=== PATIENT | male | born 1955 | race African-American/Black ===

== ENCOUNTER 2016-07-11 12:06 | Day surgery (SDC) | payer MEDICARE, OTHER ==
[2016-07-11 12:29] LABS: ABSOLUTE BASOPHILS # (AUTO) 0.1 10^3/uL (0.0-0.2); ABSOLUTE EOSINOPHILS # (AUTO) 0.5 10^3/uL (0.0-0.6); ABSOLUTE LYMPHOCYTES (AUTO) 1.1 10^3/uL (0.5-4.7); ABSOLUTE MONOCYTES (AUTO) 0.8 10^3/uL (0.1-1.4); ABSOLUTE NEUT (AUTO) 3.7 10^3/uL (1.7-8.2); EOSINOPHILS % (AUTO) 7.6 % (0-6); HEMATOCRIT 33.3 % (37.9-51.0); HEMOGLOBIN 10.5 g/dL (13.5-17.0); HGB HCT DIFFERENCE -1.8; LYMPHOCYTES % (AUTO) 18.1 % (13-45); MEAN CORPUSCULAR HEMOGLOBIN 26.8 pg (27.0-33.4); MEAN CORPUSCULAR HGB CONC 31.5 g/dL (32.0-36.0); MEAN CORPUSCULAR VOLUME 85 fl (80-97); MONOCYTES % (AUTO) 13.3 % (3-13); RED BLOOD COUNT 3.93 10^6/uL (4.35-5.55); RED CELL DISTRIBUTION WIDTH 21.8 % (11.5-14.0); WHITE BLOOD COUNT 6.2 10^3/uL (4.0-10.5)
[2016-07-11 12:37] LABS: PROTHROMBIN TIME 13.9 SEC (11.4-15.4)
[2016-07-11 12:38] LABS: PARTIAL THROMBOPLASTIN TIME 33.6 SEC (23.5-35.8)
[2016-07-11 12:53] LABS: BLOOD UREA NITROGEN 77 mg/dL (7-20); CALCIUM 7.5 mg/dL (8.4-10.2); CARBON DIOXIDE 21 mmol/L (22-30); CHLORIDE 99 mmol/L (98-107); CREATININE RESULT 12.32 mg/dL (0.52-1.25); GLUCOSE 76 mg/dL (75-110); POTASSIUM 4.7 mmol/L (3.6-5.0); SODIUM 140.6 mmol/L (137-145)
[2016-07-11 12:56] LABS: ANION GAP 21 (5-19)
[2016-07-11] MEDS ORDERED: HEPARIN SOD (PORCINE) 5,000 UNIT/ML 1 ML SYRINGE ONE (13:02)
[2016-07-11] MEDS ORDERED: MIDAZOLAM 2 MG/2 ML INJ ONE (13:02)
[2016-07-11] MEDS ORDERED: FENTANYL CITRATE INJ/PF 100 MCG/2 ML AMPUL ONE (13:02)
[2016-07-11] MEDS ORDERED: LIDOCAINE 0.5% INJ-PF (5 MG/ML) 50 ML SDV ONE (13:15)
--- NOTE | 2016-07-11 14:53 | PDOC DISCHARGE SUMMARY ---
Discharge Summary (SDC) - Discharge Final Diagnosis: 1 malfunctioning arteriovenous fistula, right radiocephalic. #2 end-stage renal disease on hemodialysis. #3 hypertension. #4 hepatitis C. #5 diabetes mellitus type II. Date of Surgery: 07/11/16 Discharge Date: 07/11/16 Condition: Fair Treatment or Instructions: #1 activities within moderation encouraged. #2 follow up in my office by appointment in about 1 week. Call for appointment. #3 the wounds covered clean and dry until hemodialysis #4 hold off on school/work until evaluation in office. #5 may shower in 48 hours, keep operated area as dry as possible. #6 discharge from ambulatory when ASU criteria met. #7 medications per medication reconciliation sheet. #8 May have one Percocet up to every 2 hours when necessary for pain greater than 4 out of 10 while in the ASU Respiratory Treatments at Home: Deep Breathing/Coughing Discharge Activity: Activity As Tolerated Report the Following to Your Physician Immediately: Unusual Bleeding
[2016-07-11 15:23] VITALS: BP 150/80
--- NOTE | 2016-07-11 18:05 | EKG REPORT ---
SEVERITY:- OTHERWISE NORMAL ECG - SINUS RHYTHM BORDERLINE LEFT AXIS DEVIATION : Confirmed by: Jason Kan MD 11-Jul-2016 18:04:47
--- NOTE | 2016-07-11 19:00 | PDOC H&P ---
General Chief Complaint: This patient on hemodialysis through a right forearm cephalic to radial fistula , is referred across because of diminished flow rates. Copious to intervene and thus prolong usable fistula function. - Diagnosis (2) End stage renal disease on dialysis Is this a Current Diagnosis?: Yes (3) Chronic systolic (congestive) heart failure Is this a Current Diagnosis?: Yes (5) Hepatitis C Is this a Current Diagnosis?: Yes - Current Medications/Allergies Home Medications: Clonidine HCl [Catapres] 0.1 mg PO BID 01/25/15 Allopurinol [Zyloprim 100 mg Tablet] 100 mg PO DAILY 03/05/15 Metronidazole [Flagyl 500 mg Tablet] 500 mg PO Q8H 04/04/15 Colchicine [Colchicine 0.6 mg Tablet] 1 tab PO BID PRN 08/07/15 Aspirin [Aspirin 81 mg Chewable Tablet] 81 mg PO DAILY 02/22/16 Calcium Acetate 667 mg PO ASDIR PRN 02/22/16 Allergies/Adverse Reactions: No Known Allergies Allergy (Unverified 06/07/15 10:31) Past Medical History Cardiac Medical History: Reports: Congestive Heart Failure, Coronary Artery Disease - hyperlipidemia, Hypertension Denies: Myocardial Infarction Pulmonary Medical History: Denies: Asthma, Bronchitis, Chronic Obstructive Pulmonary Disease (COPD), Pneumonia Neurological Medical History: Denies: Seizures Endocrine Medical History: Reports: Diabetes Mellitus Type 2 - diet controlled Renal/ Medical History: Reports: End Stage Renal Disease Musculoskeltal Medical History: Reports: Arthritis - left knee Psychiatric Medical History: Denies: Depression Hematology: Denies: Anemia Past Surgical History Past Surgical History: Reports: Vascular Surgery - Laparoscopic peritoneal dialysis catheter insertion. Right forearm radio Family History Family History: Reviewed & Not Pertinent, CAD, DM Parental Family History Reviewed: No Children Family History Reviewed: No Sibling(s) Family History Reviewed.: No Social History Smoking Status: Former Smoker Frequency of Alcohol Use: None Hx Recreational Drug Use: No Drugs: None Hx Prescription Drug Abuse: No Physical Exam Vital Signs: Temp Pulse Resp BP Pulse Ox 97.7 F 51 L 16 150/80 H 99 07/11/16 14:40 07/11/16 15:10 07/11/16 15:10 07/11/16 15:10 07/11/16 15:10 Intake & Output 02/05/17 02/06/17 02/07/17 06:59 06:59 06:59 Weight 83.915 kg Additional comments: A well-developed well-nourished -Faroese male. Muscular body habitus. No acute distress. Eyes membranes is pink and moist, sclerae anicteric. Respiratory no shortness of breath. Breath sounds are normal and equal bilaterally. Cardiac: Heart sounds 1 and 2 heard, no murmurs. Upper extremities show normal range of movement and pulsatile to the radials. Normal capillary refill. A cephalic to radial artery fistula is appreciated. In the right upper extremity. Somewhat soft, suggesting inflow stenosis. Psychiatric the patient is alert, oriented, judgment, memory, insight normal Impression/Plan Impression: In this patient who is pendant on the function of his AV fistula for adequate hemodialysis, intervention seems well indicated. The plan is to do an angiogram and possible angioplasty. The risks, benefits, expected outcome, and alternatives are familiar to the patient.
--- NOTE | 2016-07-11 19:05 | Operative Report ---
Operative Report DATE OF SURGERY: 07/11/16 PREOPERATIVE DIAGNOSIS: #1 malfunctioning AV fistula, right radiocephalic. #2 end-stage renal disease on hemodialysis. #3 history of hepatitis C. #4 history of coronary artery disease. #5 hypertension. POSTOPERATIVE DIAGNOSIS: #1 malfunctioning AV fistula, right radiocephalic. #2 end-stage renal disease on hemodialysis. #3 history of hepatitis C. #4 history of coronary artery disease. #5 hypertension. OPERATION: #1 needle access into fistula. #2 angioplasty. #3 angiogram and interpretation. SURGEON: CHANDU VERMA JUNIOR ESTIMATOR: none ANESTHESIA: Moderate Sedation TISSUE REMOVED OR ALTERED: Not applicable. COMPLICATIONS: None ESTIMATED BLOOD LOSS: 5 mL. INTRAOPERATIVE FINDINGS: Of a well-founded right forearm cephalic to radial fistula. Functional with a nice bruit. Nevertheless the fistula is relatively soft, in comparison to the firm initially 3 cm. This correlates with the angiographic findings of an area of stenosis 70% of the adjacent lumen and situated at about 3-5 cm. The area exactly of 5 cm was particularly resistant. Inflating to the maximum burst pressure of the balloon which is 22 lakia there was still some residual stenosis. Estimated to be about 15%. Nevertheless the quality of the fistula pulsation markedly improved after the procedure. It may be necessary in the future to use a higher pressure balloon and possibly even going up to 6 rather than 5 mm balloon. PROCEDURE: PROCEDURE: After verifying the procedure and having obtained informed consent, the patient's right arm and forearm were prepared with Chlorhexidine and draped out with sterile linen. Local anesthesia infiltrated. Percutaneous access into the fistula ,[retrograde], obtained about [15 cm] from the arteriovenous anastomosis using a micro puncture needle followed by micro puncture wire and then a micro puncture catheter. This was done on ultrasound guidance using real-time access into the vein. Ultrasound was also used to size the vein. Angiogram demonstrated the aforementioned findings. Angioplasty was elected. A 0.035 [place] wire was inserted, and over this, a 6 [place] short introducer was placed, this was followed by a 5 mm angioplasty balloon . Angioplasty was now done at the distal over the anastomotic and perianastomotic segment. This was done very carefully and up to 10 lakia sustained for 2 minutes. Angiogram demonstrated successful outcome. The balloon was moved distal to the anastomosis and inflation done in careful increments up to 22 lakia over the culprit lesion. Completion angiogram demonstrated [and acceptable result]. The instrumentation was now withdrawn over pressure for about 10 minutes. Dressings applied, procedure concluded. DICTATING PHYSICIAN: CHANDU BLACKBURN M.D. cc: CHANDU BLACKBURN M.D. ([id number]) >>
== END 2016-07-11 15:25 | disposition home or self-care (01) ==
LOC: CCL 12:06
PROVIDERS: ATTEND Surgery
PROC: 057D3DZ Dilation of Right Cephalic Vein with Intraluminal Device, Percutaneous Approach (ICD-10-PCS; principal; 2016-07-11)
DX: T82.858A Stenosis of other vascular prosthetic devices, implants and grafts, initial encounter (principal); Y83.2 Surgical operation with anastomosis, bypass or graft as the cause of abnormal reaction of the patient, or of later complication, without mention of misadventure at the time of the procedure; E11.22 Type 2 diabetes mellitus with diabetic chronic kidney disease; I12.0 Hypertensive chronic kidney disease with stage 5 chronic kidney disease or end stage renal disease; N18.6 End stage renal disease; B19.20 Unspecified viral hepatitis C without hepatic coma; I50.22 Chronic systolic (congestive) heart failure; I25.10 Atherosclerotic heart disease of native coronary artery without angina pectoris; E78.5 Hyperlipidemia, unspecified; M17.12 Unilateral primary osteoarthritis, left knee; Z79.01 Long term (current) use of anticoagulants; Z79.899 Other long term (current) drug therapy; Z79.82 Long term (current) use of aspirin
CPT/HCPCS: 36415; 85025; 85610; 85730; 80048; 36902; 71010; 93005; 93010; C1725; C1887; Q9967; C1769; J2250; J1644 ×2; J3010; J3490

== ENCOUNTER 2016-09-13 06:57 | Day surgery (SDC) | payer MEDICARE, OTHER ==
[~2016-09-13 06:57] MED LIST: DIAZEPAM 5 MG TABLET PO PRN; OXYCODONE-ACETAMINOPHEN 5-325 MG TABLET PO PRN
[2016-09-13 07:26] LABS: ABSOLUTE BASOPHILS # (AUTO) 0.1 10^3/uL (0.0-0.2); ABSOLUTE EOSINOPHILS # (AUTO) 0.7 10^3/uL (0.0-0.6); ABSOLUTE LYMPHOCYTES (AUTO) 1.1 10^3/uL (0.5-4.7); ABSOLUTE MONOCYTES (AUTO) 0.7 10^3/uL (0.1-1.4); ABSOLUTE NEUT (AUTO) 4.1 10^3/uL (1.7-8.2); EOSINOPHILS % (AUTO) 10.7 % (0-6); HEMATOCRIT 26.5 % (37.9-51.0); HEMOGLOBIN 8.3 g/dL (13.5-17.0); HGB HCT DIFFERENCE -1.6; LYMPHOCYTES % (AUTO) 16.7 % (13-45); MEAN CORPUSCULAR HEMOGLOBIN 25.4 pg (27.0-33.4); MEAN CORPUSCULAR HGB CONC 31.4 g/dL (32.0-36.0); MEAN CORPUSCULAR VOLUME 81 fl (80-97); MONOCYTES % (AUTO) 10.4 % (3-13); RED BLOOD COUNT 3.27 10^6/uL (4.35-5.55); RED CELL DISTRIBUTION WIDTH 23.5 % (11.5-14.0); SEGMENTED NEUTROPHILS % (AUTO) 61.2 % (42-78); WHITE BLOOD COUNT 6.7 10^3/uL (4.0-10.5)
[2016-09-13 07:41] LABS: ANION GAP 17 (5-19); BLOOD UREA NITROGEN 55 mg/dL (7-20); CALCIUM 8.6 mg/dL (8.4-10.2); CARBON DIOXIDE 25 mmol/L (22-30); CHLORIDE 105 mmol/L (98-107); GLUCOSE 85 mg/dL (75-110); SODIUM 146.8 mmol/L (137-145)
[2016-09-13] MEDS ORDERED: MIDAZOLAM 2 MG/2 ML INJ ONE (08:13)
[2016-09-13] MEDS ORDERED: HEPARIN SOD (PORCINE) 5,000 UNIT/ML 1 ML SYRINGE ONE (08:14)
[2016-09-13] MEDS ORDERED: FENTANYL CITRATE INJ/PF 100 MCG/2 ML AMPUL ONE (08:14)
[2016-09-13] MEDS ORDERED: LIDOCAINE 0.5% INJ-PF (5 MG/ML) 50 ML SDV ONE (08:16)
[2016-09-13 08:32] LABS: POTASSIUM 6.1 mmol/L (3.6-5.0)
[2016-09-13] MEDS ORDERED: SODIUM POLYSTYRENE SULFONATE 15 GM/60 ML ONE (08:38)
[2016-09-13] MEDS ORDERED: SODIUM POLYSTYRENE SULFONATE 15 GM/60 ML PO ONE (09:15)
--- NOTE | 2016-09-13 10:35 | PDOC DISCHARGE SUMMARY ---
Discharge Summary (SDC) - Discharge Final Diagnosis: #1 malfunctioning arteriovenous fistula right radiocephalic. #2 hemodialysis with end-stage renal disease. #3 hepatitis C. #4 diabetes mellitus type II. #5 hypertension. Date of Surgery: 09/13/16 Discharge Date: 09/13/16 Condition: Good Treatment or Instructions: #1 activities within moderation encouraged. #2 follow up in my office by appointment in about 1 month. Call for appointment. #3 the wounds covered clean and dry until dialysis. #4 hold off on school/work until evaluation in office. #5 may shower in 48 hours, keep operated area as dry as possible. #6 discharge from ambulatory when ASU criteria met. #7 medications per medication reconciliation sheet. Discharge Diet: Other (Comments) - Renal. Respiratory Treatments at Home: Deep Breathing/Coughing Discharge Activity: Activity As Tolerated Report the Following to Your Physician Immediately: Unusual Bleeding
--- NOTE | 2016-09-13 10:43 | Operative Report ---
Operative Report DATE OF SURGERY: 09/13/16 PREOPERATIVE DIAGNOSIS: #1 malfunctioning arteriovenous fistula right radiocephalic. #2 hemodialysis with end-stage renal disease. #3 hepatitis C. #4 diabetes mellitus type II. #5 hypertension. POSTOPERATIVE DIAGNOSIS: #1 malfunctioning arteriovenous fistula right radiocephalic. #2 hemodialysis with end-stage renal disease. #3 hepatitis C. #4 diabetes mellitus type II. #5 hypertension. OPERATION: #1 needle introduction into arteriovenous fistula. #2 angioplasty in arteriovenous fistula. #3 angiogram and interpretation. SURGEON: CHANDU VERMA SUMMER BABYSITTER: none ANESTHESIA: Moderate Sedation TISSUE REMOVED OR ALTERED: Not applicable. COMPLICATIONS: None. ESTIMATED BLOOD LOSS: 5 mL. INTRAOPERATIVE FINDINGS: Of a well-founded right forearm radiocephalic fistula. Relatively soft initially, consistent with inflow stenosis. Much improved after angioplasty with a nice appropriate firmness in the fistula. The culprit area was a 1 cm area of stenosis about 4 cm away from the anastomosis. The anastomosis is free of stenosis. The stenosis is 80% of the adjacent lumen. It was improved with a residual 5-10 stenosis except for a very short area of tight stenosis which was improved but not eliminated. Even with pressures up to 32 lakia. This area may need to be addressed with high pressure balloons or cutting balloon needed in the future. PROCEDURE: PROCEDURE: After verifying the procedure and having obtained informed consent, the patient's right arm and forearm were prepared with Chlorhexidine and draped out with sterile linen. Local anesthesia infiltrated. Percutaneous access into the fistula ,[retrograde], obtained about [20 cm] from the arteriovenous anastomosis using a micro puncture needle followed by micro puncture wire and then a micro puncture catheter. Angiogram demonstrated the aforementioned findings. Angioplasty was elected. A 0.035 [place] wire was inserted, and over this, a 6 Albanian short introducer was placed a [place] catheter was now placed over the Glidewire. The Glidewire was manipulated into the radial artery , there was a tendency to go into the distal branch of the cephalic vein. The copy catheter was used to obtain a angiogram starting in the radial artery with the findings as above.m This was followed by a [5] angioplasty balloon . Angioplasty was now done at the perianastomotic segment. This was done very carefully and in the up to 18 lakia sustained for 2 minutes. The catheter now inflated up to 22 lakia. For 1 minute. Again thick completion angiogram was suboptimal. Angiogram demonstrated equivocal outcome. The balloon was now swapped over the wire for a 6 mm angioplasty balloon. Angioplasty was done at the culprit area. Inflating up to 32 atmospheres for a minute at a time.]. Completion angiogram demonstrated vast improvement, and acceptable result in addition the fistula generated higher pressures to palpation and before but within acceptable limits.. The instrumentation was now withdrawn over a hand- held pressure for 10 minutes Dressings applied, procedure concluded. Exposure time: 1.4 minutes Radiation: 19 lexa per centimeter squared Contrast: 25 mL of Isovue-M 300 low osmolality. DICTATING PHYSICIAN: CHANDU BLACKBURN M.D. cc: CHANDU BLACKBURN M.D. ([id number]) >>
[2016-09-13 12:03] VITALS: BP 151/80
== END 2016-09-13 11:40 | disposition home or self-care (01) ==
LOC: CCL 06:57
PROVIDERS: ATTEND Surgery
PROC: 057D3DZ Dilation of Right Cephalic Vein with Intraluminal Device, Percutaneous Approach (ICD-10-PCS; principal; 2016-09-13)
DX: T82.858A Stenosis of other vascular prosthetic devices, implants and grafts, initial encounter (principal); Y83.2 Surgical operation with anastomosis, bypass or graft as the cause of abnormal reaction of the patient, or of later complication, without mention of misadventure at the time of the procedure; I12.0 Hypertensive chronic kidney disease with stage 5 chronic kidney disease or end stage renal disease; E11.22 Type 2 diabetes mellitus with diabetic chronic kidney disease; Z99.2 Dependence on renal dialysis; B19.20 Unspecified viral hepatitis C without hepatic coma
CPT/HCPCS: 36415; 85025; 80048; 36902; C1725 ×2; C1752; C1887; Q9967; C1769; J2250; J1644 ×2; A9270 ×2; J3010; J3490

== ENCOUNTER 2016-12-05 07:02 | Day surgery (SDC) | payer MEDICARE, OTHER ==
[2016-12-05] MEDS ORDERED: HEPARIN SOD (PORCINE) 1,000 UNIT/ML 1 ML VIAL ONE (07:21)
[2016-12-05] MEDS ORDERED: LIDOCAINE 0.5% INJ-PF (5 MG/ML) 50 ML SDV ONE ×2 (07:22)
[2016-12-05] MEDS ORDERED: HEPARIN SOD (PORCINE) 1,000 UNIT/ML 10 ML VIAL ONE (08:17)
[2016-12-05 08:37] LABS: HEMATOCRIT 36.1 % (37.9-51.0); HEMOGLOBIN 10.9 g/dL (13.5-17.0); HGB HCT DIFFERENCE -3.4; MEAN CORPUSCULAR HEMOGLOBIN 25.1 pg (27.0-33.4); MEAN CORPUSCULAR HGB CONC 30.3 g/dL (32.0-36.0); MEAN CORPUSCULAR VOLUME 83 fl (80-97); RED BLOOD COUNT 4.36 10^6/uL (4.35-5.55); RED CELL DISTRIBUTION WIDTH 23.7 % (11.5-14.0); WHITE BLOOD COUNT 5.2 10^3/uL (4.0-10.5)
[2016-12-05 08:55] LABS: ANION GAP 19 (5-19); BLOOD UREA NITROGEN 59 mg/dL (7-20); CALCIUM 7.2 mg/dL (8.4-10.2); CARBON DIOXIDE 24 mmol/L (22-30); CHLORIDE 100 mmol/L (98-107); CREATININE RESULT 13.19 mg/dL (0.52-1.25); GLUCOSE 80 mg/dL (75-110); POTASSIUM 5.2 mmol/L (3.6-5.0); SODIUM 143.4 mmol/L (137-145)
[2016-12-05] MEDS ORDERED: MIDAZOLAM 2 MG/2 ML INJ ONE (09:53)
[2016-12-05] MEDS ORDERED: MORPHINE SULFATE 10 MG/ML INJ ONE (09:53)
[2016-12-05] MEDS ORDERED: PROPOFOL INJ 200 MG/20 ML VIAL IV ONE (09:53)
--- NOTE | 2016-12-05 09:58 | PDOC H&P ---
General Chief Complaint: Decreased flows have been noted on hemodialysis recently. He is referred across for angiogram - Current Medications/Allergies Home Medications: Clonidine HCl [Catapres] 0.1 mg PO BID 01/25/15 Allopurinol [Zyloprim 100 mg Tablet] 100 mg PO DAILY 03/05/15 Metronidazole [Flagyl 500 mg Tablet] 500 mg PO Q8H 04/04/15 Colchicine [Colchicine 0.6 mg Tablet] 1 tab PO BID PRN 08/07/15 Aspirin [Aspirin 81 mg Chewable Tablet] 81 mg PO DAILY 02/22/16 Calcium Acetate 667 mg PO ASDIR PRN 02/22/16 Allergies/Adverse Reactions: No Known Allergies Allergy (Unverified 12/05/16 08:48) Past Medical History Cardiac Medical History: Reports: Congestive Heart Failure, Coronary Artery Disease - hyperlipidemia, Hypertension Denies: Myocardial Infarction Pulmonary Medical History: Denies: Asthma, Bronchitis, Chronic Obstructive Pulmonary Disease (COPD), Pneumonia Neurological Medical History: Denies: Seizures Endocrine Medical History: Reports: Diabetes Mellitus Type 2 - diet controlled Renal/ Medical History: Reports: End Stage Renal Disease Musculoskeltal Medical History: Reports: Arthritis - left knee Psychiatric Medical History: Denies: Depression Hematology: Denies: Anemia Past Surgical History Past Surgical History: Reports: Vascular Surgery - Laparoscopic peritoneal dialysis catheter insertion. Right forearm radio Family History Family History: Reviewed & Not Pertinent, CAD, DM Parental Family History Reviewed: No Children Family History Reviewed: No Sibling(s) Family History Reviewed.: No Social History Smoking Status: Former Smoker Frequency of Alcohol Use: None Hx Recreational Drug Use: No Drugs: None Hx Prescription Drug Abuse: No Physical Exam Vital Signs: Temp Pulse Resp BP Pulse Ox 97.6 F 56 L 14 127/74 H 100 12/05/16 08:21 12/05/16 08:21 12/05/16 08:21 12/05/16 08:21 12/05/16 08:21 Intake & Output 12/04/16 12/05/16 12/06/16 06:59 06:59 06:59 Intake Total 1000 Balance 1000 Weight 91.63 kg Additional comments: Constitutional: Well-developed well-nourished -[place]ian gentleman. No apparent acute distress. Eyes: Mucous membranes pink and moist, pupils equal and reactive to light. Conjunctiva normal. Cornea senilis noted. ENT: Hearing grossly normal. External pinna normal to inspection. Teeth intact. Tongue normal to inspection. There are: Heart sounds 1 and normal normal, no murmurs Respiratory breath sounds are present bilaterally, normal. Normal respiratory effort. Skin: Normal to inspection. No ulcers, normal turgor. Psychiatric: Judgment, memory, insight seem normal. Mood is pleasant and appropriate. Extremities: Upper extremities show normal range of movement. Pulses present noted to the radial arteries. Capillary refill normal. No cyanosis noted. No muscle wasting noted. Forearm radiocephalic fistula in place. Normal bruit normal palpation. Impression/Plan Impression: #1 malfunctioning AV fistula right arm, radiocephalic. 2. End-stage renal disease on hemodialysis. 3. Hepatitis C. 4. Hypertension. Plan: The plan is for angioplasty [place] and possible angioplasty. The procedure, its risks, benefits, expected outcome and alternatives are familiar to the patient. He wishes to proceed.
[2016-12-05] MEDS ORDERED: MEPERIDINE HCL/PF INJ 25 MG/1 ML DISP.SYRIN IV PRN (10:41)
[2016-12-05] MEDS ORDERED: DIPHENHYDRAMINE HCL 50 MG/ML VIAL IV PRN (10:41)
[2016-12-05] MEDS ORDERED: MORPHINE SULFATE 10 MG/ML INJ IV PRN (10:41)
[2016-12-05] MEDS ORDERED: FENTANYL CITRATE INJ/PF 100 MCG/2 ML AMPUL IV PRN ×3 (10:41)
[2016-12-05] MEDS ORDERED: PROMETHAZINE HCL INJ 25 MG/1 ML VIAL IV PRN ×2 (10:41)
[2016-12-05] MEDS ORDERED: OXYCODONE-ACETAMINOPHEN 5-325 MG TABLET PO PRN ×2 (10:41)
--- NOTE | 2016-12-05 11:29 | PDOC DISCHARGE SUMMARY ---
Discharge Summary (SDC) - Discharge Final Diagnosis: #1 malfunctioning arteriovenous fistula, right radiocephalic. 2. End-stage renal disease on hemodialysis. 3. Diabetes mellitus type 2. 4. Hepatitis C. 5. Hypertension. Date of Surgery: 12/05/16 Discharge Date: 12/05/16 Condition: Good Treatment or Instructions: Discharge home [after recovery per ASU criteria]. Diet , [renal],as tolerated, when fully awake advance as tolerated. Activities within moderation encouraged. Follow up in my office by appointment in about [1 week]. Call for appointment. Leave wounds [covered], hemodialysis]. Hold of on school/work [until evaluation in office]. May shower [in 48 hrs], [try to keep operated area as dry as possible]. Resume medications per medication reconciliation..
--- NOTE | 2016-12-05 12:41 | EKG REPORT ---
SEVERITY:- ABNORMAL ECG - SINUS RHYTHM BORDERLINE LEFT AXIS DEVIATION BORDERLINE PROLONGED QT INTERVAL CONSIDER OLD ANTEROSEPTAL MS : Confirmed by: Jason Kan MD 05-Dec-2016 12:40:34
[2016-12-05] MEDS ORDERED: GLYCOPYRROLATE INJ 0.4 MG/2 ML VIAL ONE (13:30)
[2016-12-05] MEDS ORDERED: ONDANSETRON HCL INJ/PF 4 MG/2 ML SDV ONE (13:30)
[2016-12-05] MEDS ORDERED: LIDOCAINE 2% INJ-PF (20 MG/ML) 10 ML AMPUL ONE (13:30)
--- NOTE | 2016-12-05 14:45 | RADIOLOGY REPORT (SQ) ---
EXAM DESCRIPTION: NO CHG FLUORO; FOREARM RIGHT COMPLETED DATE/TIME: 12/05/2016 2:36 pm REASON FOR STUDY: T82.858A T82.858A STENOSIS OF OTHER VASCULAR PROSTH DEV/GRFT, INIT COMPARISON: None. FLUOROSCOPY TIME: 5.6 minutes 22 images saved to PACS. TECHNIQUE: Intra-operative images acquired during surgical procedure to evaluate progress. NUMBER OF IMAGES: 22 LIMITATIONS: None. FINDINGS: Balloon angioplasty intervention of upper extremity dialysis graft. IMPRESSION: IMAGE(S) OBTAINED DURING PROCEDURE. COMMENT: Quality ID [id number]: Final reports for procedures using fluoroscopy that document radiation exp osure indices, or exposure time and number of fluorographic images (if radiation exposure indices are not available) Please consult full operative report of the attending physician for description of the procedure. TECHNICAL DOCUMENTATION: JOB ID: [id number] [employer]- All Rights Reserved
--- NOTE | 2016-12-05 14:45 | RADIOLOGY REPORT (SQ) ---
EXAM DESCRIPTION: NO CHG FLUORO; FOREARM RIGHT COMPLETED DATE/TIME: 12/05/2016 2:36 pm REASON FOR STUDY: T82.858A T82.858A STENOSIS OF OTHER VASCULAR PROSTH DEV/GRFT, INIT COMPARISON: None. FLUOROSCOPY TIME: 5.6 minutes 22 images saved to PACS. TECHNIQUE: Intra-operative images acquired during surgical procedure to evaluate progress. NUMBER OF IMAGES: 22 LIMITATIONS: None. FINDINGS: Balloon angioplasty intervention of upper extremity dialysis graft. IMPRESSION: IMAGE(S) OBTAINED DURING PROCEDURE. COMMENT: Quality ID [id number]: Final reports for procedures using fluoroscopy that document radiation exp osure indices, or exposure time and number of fluorographic images (if radiation exposure indices are not available) Please consult full operative report of the attending physician for description of the procedure. TECHNICAL DOCUMENTATION: JOB ID: [id number] [employer]- All Rights Reserved
[2016-12-05 15:42] VITALS: BP 147/86
--- NOTE | 2016-12-14 13:18 | Operative Report ---
Operative Report DATE OF SURGERY: 12/05/16 PREOPERATIVE DIAGNOSIS: #1 malfunctioning arteriovenous fistula, right radiocephalic. 2. End-stage renal disease on hemodialysis. 3. Diabetes mellitus type 2. 4. Hepatitis C. 5. Hypertension. POSTOPERATIVE DIAGNOSIS: #1 malfunctioning arteriovenous fistula, right radiocephalic. 2. End-stage renal disease on hemodialysis. 3. Diabetes mellitus type 2. 4. Hepatitis C. 5. Hypertension. OPERATION: 1 needle access into AV fistula. 2. Angioplasty. 3. Angiogram and interpretation SURGEON: CHANDU BLACKBURN 1ST GLOVE CUFFER: None ANESTHESIA: Moderate Sedation TISSUE REMOVED OR ALTERED: Not applicable COMPLICATIONS: None ESTIMATED BLOOD LOSS: 2 mL. INTRAOPERATIVE FINDINGS: Over area of tight stenosis about 80% of the adjacent lumen noted about 6 cm away from the anastomosis. This area was very difficult to dilate. A moderate amount of success was achieved with a residual about 10% stenosis. The highest possible pressures were utilized, 30 lakia. Dressing was lesion in the future might need a cutting balloon or a higher pressure insufflator. PROCEDURE: PROCEDURE: After verifying the procedure and having obtained informed consent, the patient's right arm and forearm were prepared with Chlorhexidine and draped out with sterile linen. Local anesthesia infiltrated. Percutaneous access into the fistula ,[retrograde], obtained about [20 cm] from the arteriovenous anastomosis using a micro puncture needle followed by micro puncture wire and then a micro puncture catheter. This was done on ultrasound guidance using real-time access into the vein. Ultrasound was also used to size the vein. Angiogram demonstrated the aforementioned findings. Angioplasty was elected. A 0.035 [place] wire was inserted, and over this, a 6 Mauritanian short introducer was placed, this was followed by a [6 mm ] angioplasty balloon . Angioplasty was now done at the perianastomotic segment. This was done very carefully and in increments up to 30 lakia sustained for 2 minutes. Angiogram demonstrated improved outcome. Completion angiogram demonstrated [satisfactory result]. The instrumentation was now withdrawn over hand-held pressure for 10 minutes. Dressings applied, procedure concluded. DICTATING PHYSICIAN: CHANDU BLACKBURN M.D. cc: CHANDU BLACKBURN M.D. ([id number]) >>
== END 2016-12-05 12:55 | disposition home or self-care (01) ==
LOC: OROUT 07:02
PROVIDERS: ATTEND Surgery
PROC: 057D3DZ Dilation of Right Cephalic Vein with Intraluminal Device, Percutaneous Approach (ICD-10-PCS; principal; 2016-12-05 10:00)
DX: T82.858A Stenosis of other vascular prosthetic devices, implants and grafts, initial encounter (principal); Y83.2 Surgical operation with anastomosis, bypass or graft as the cause of abnormal reaction of the patient, or of later complication, without mention of misadventure at the time of the procedure; I13.2 Hypertensive heart and chronic kidney disease with heart failure and with stage 5 chronic kidney disease, or end stage renal disease; I50.9 Heart failure, unspecified; N18.6 End stage renal disease; E11.22 Type 2 diabetes mellitus with diabetic chronic kidney disease; Z99.2 Dependence on renal dialysis; B19.20 Unspecified viral hepatitis C without hepatic coma; I25.10 Atherosclerotic heart disease of native coronary artery without angina pectoris; E78.5 Hyperlipidemia, unspecified; Z79.899 Other long term (current) drug therapy; Z79.82 Long term (current) use of aspirin; Z87.891 Personal history of nicotine dependence
CPT/HCPCS: 36902; 36415; 85027; 80048; 73090; 93005; 93010; C1725; C1752; C1887; Q9967; C1769; J2250; J1644 ×2; J3490 ×2; J2270; J2405; J2704; 01844

== ENCOUNTER → 2017-01-04 | Outpatient (CLI) | payer MEDICARE, OTHER ==
--- NOTE | 2017-01-04 11:22 | RADIOLOGY REPORT (SQ) ---
EXAM DESCRIPTION: U/S ABDOMEN LIMITED W/O DOP COMPLETED DATE/TIME: 01/04/2017 11:09 am REASON FOR STUDY: LT FLANK PAIN R10.9 UNSPECIFIED ABDOMINAL PAIN TECHNIQUE: Dynamic and static grayscale images acquired of the left kidney and spleen and recorded o n PACS. Additional selected color Doppler and spectral images recorded. LIMITATIONS: None. FINDINGS: LEFT KIDNEY: Kidney noted to be small in size with increased echogenicity suggestive of m edical renal disease. No focal lesions identified. No hydronephrosis. No calcifications. OTHER FINDINGS: Spleen normal in size. No focal lesions. IMPRESSION: Atrophic left kidney with increased echogenicity 6 suggestive of medical renal disease. No focal lesions identified. No hydronephrosis. No nephrolithiasis. Spleen is unremarkable. TECHNICAL DOCUMENTATION: JOB ID: [id number] [employer]- All Rights Reserved COMPARISON: None. 04/04/2015
== END ==
LOC: RAD 10:51
PROVIDERS: ATTEND Physician Assistant Medical
DX: R10.9 Unspecified abdominal pain (principal)
CPT/HCPCS: 76705

== ENCOUNTER 2017-06-28 11:00 | Outpatient (CLI) | payer MEDICARE, OTHER ==
[~2017-06-28 11:00] MED LIST changes: +ACETAMINOPHEN 325 MG TABLET PO PRN; -DIAZEPAM 5 MG TABLET PO PRN; +DIPHENHYDRAMINE HCL 25 MG CAPSULE PO PRN; +FUROSEMIDE INJ/PF 20 MG/2 ML SDV IV PRN; -OXYCODONE-ACETAMINOPHEN 5-325 MG TABLET PO PRN
[2017-06-28 11:36] LABS: HEMATOCRIT 16.6 % (37.9-51.0); MEAN CORPUSCULAR HEMOGLOBIN 24.3 pg (27.0-33.4); MEAN CORPUSCULAR HGB CONC 31.7 g/dL (32.0-36.0); MEAN CORPUSCULAR VOLUME 77 fl (80-97); PLATELET COUNT 366 10^3/uL (150-450); RED BLOOD COUNT 2.17 10^6/uL (4.35-5.55); RED CELL DISTRIBUTION WIDTH 21.4 % (11.5-14.0); WHITE BLOOD COUNT 6.2 10^3/uL (4.0-10.5)
[2017-06-28 11:39] LABS: HEMOGLOBIN 5.3 g/dL (13.5-17.0)
[2017-06-28] MEDS ORDERED: NORMAL SALINE 250 ML IV PRN (11:50)
[2017-06-28] MEDS ORDERED: ACETAMINOPHEN 325 MG TABLET ONE (14:17)
[2017-06-28] MEDS ORDERED: DIPHENHYDRAMINE HCL 25 MG CAPSULE PO ONE (18:30)
[2017-06-28] MEDS ORDERED: ACETAMINOPHEN 325 MG TABLET PO ONE (18:30)
[2017-06-29 00:51] VITALS: BP 113/64
== END 2017-06-29 00:45 | disposition home or self-care (01) ==
LOC: II 11:00 → 2S 11:06 → II 06-29 00:45
PROVIDERS: ATTEND Internal Medicine Nephrology
PROC: 30233N1 Transfusion of Nonautologous Red Blood Cells into Peripheral Vein, Percutaneous Approach (ICD-10-PCS; principal; 2017-06-28)
DX: N18.6 End stage renal disease (principal); D63.1 Anemia in chronic kidney disease
CPT/HCPCS: 86900; 86901; 36415; 87040; 36430; 86850; 86920; P9016; A9270 ×2

== ENCOUNTER 2017-07-01 14:23 | Observation (INO) | payer MEDICARE, OTHER ==
[2017-07-01 15:20] LABS: ABSOLUTE BASOPHILS # (AUTO) 0.1 10^3/uL (0.0-0.2); ABSOLUTE EOSINOPHILS # (AUTO) 0.1 10^3/uL (0.0-0.6); ABSOLUTE LYMPHOCYTES (AUTO) 0.8 10^3/uL (0.5-4.7); ABSOLUTE MONOCYTES (AUTO) 0.8 10^3/uL (0.1-1.4); ABSOLUTE NEUT (AUTO) 4.3 10^3/uL (1.7-8.2); BASOPHILS % (AUTO) 0.9 % (0-2); EOSINOPHILS % (AUTO) 2.1 % (0-6); HEMATOCRIT 21.4 % (37.9-51.0); LYMPHOCYTES % (AUTO) 12.9 % (13-45); MEAN CORPUSCULAR HEMOGLOBIN 25.5 pg (27.0-33.4); MEAN CORPUSCULAR HGB CONC 31.9 g/dL (32.0-36.0); MEAN CORPUSCULAR VOLUME 80 fl (80-97); MONOCYTES % (AUTO) 12.7 % (3-13); PLATELET COUNT 364 10^3/uL (150-450); RED BLOOD COUNT 2.67 10^6/uL (4.35-5.55); RED CELL DISTRIBUTION WIDTH 20.4 % (11.5-14.0); SEGMENTED NEUTROPHILS % (AUTO) 71.4 % (42-78); TOTAL CELLS COUNTED % (AUTO) 100 %
[2017-07-01 15:25] LABS: HEMOGLOBIN 6.8 g/dL (13.5-17.0)
[2017-07-01 15:27] LABS: ALANINE AMINOTRANSFERASE 16 U/L (21-72); ALBUMIN 3.9 g/dL (3.5-5.0); ALKALINE PHOSPHATASE 52 U/L (38-126); ANION GAP 15 (5-19); ASPARTATE AMINO TRANSFERASE 18 U/L (17-59); BILIRUBIN,DIRECT 0.2 mg/dL (0.0-0.4); BILIRUBIN,TOTAL 0.2 mg/dL (0.2-1.3); BLOOD UREA NITROGEN 57 mg/dL (7-20); CALCIUM 7.6 mg/dL (8.4-10.2); CARBON DIOXIDE 28 mmol/L (22-30); CHLORIDE 94 mmol/L (98-107); GLUCOSE 107 mg/dL (75-110); POTASSIUM 4.4 mmol/L (3.6-5.0); SODIUM 137.3 mmol/L (137-145); TOTAL PROTEIN 6.5 g/dL (6.3-8.2)
--- NOTE | 2017-07-01 15:43 | RADIOLOGY REPORT (SQ) ---
EXAM DESCRIPTION: CHEST PA/LAT COMPLETED DATE/TIME: 07/01/2017 3:20 pm REASON FOR STUDY: Dialysis patient, short of breath COMPARISON: Chest x-ray 07/11/2016. EXAM PARAMETERS: NUMBER OF VIEWS: two views TECHNIQUE: Digital Frontal and Lateral radiographic views of the chest acquired. RADIATION DOSE: NA LIMITATIONS: none FINDINGS: LUNGS AND PLEURA: No consolidation, pneumothorax or pleural effusion. MEDIASTINUM AND HILAR STRUCTURES: No masses or contour abnormalities. HEART AND VASCULAR STRUCTURES: Heart normal size. No evidence for failure. BONES: Mild multilevel degenerative changes in the spine. HARDWARE: None in the chest. IMPRESSION: No acute radiographic finding in the chest. TECHNICAL DOCUMENTATION: JOB ID: [id number] [facility]- All Rights Reserved
--- NOTE | 2017-07-01 16:06 | ER Document Report ---
ED General - General Chief Complaint: Shortness Of Breath Stated Complaint: SHORTNESS OF BREATH Time Seen by Provider: 07/01/17 14:56 Notes: Patient says he has been feeling extremely weak ever since he got a blood transfusion on Monday, 4 days ago. He is a dialysis patient and occasionally gets transfusions, the most recent was about a year ago. Denies any observed blood loss. Denies any vomiting or diarrhea or blood in stools. Denies chest pain. Does have some cough and feels some shortness of breath. He is coughing up some green sputum. Thinks he has had a little fever. Patient has a shunt in his right arm which he says needs to be revised, although it is still functioning. He has been on dialysis for about 2 or 3 years. History of hypertension. TRAVEL OUTSIDE OF THE [place] IN LAST 30 DAYS: No - Related Data Allergies/Adverse Reactions: No Known Allergies Allergy (Unverified 12/05/16 08:48) Past Medical History - Social History Smoking Status: Current Every Day Smoker Chew tobacco use (# tins/day): No Frequency of alcohol use: None Drug Abuse: None Family History: Reviewed & Not Pertinent, CAD, DM Patient has suicidal ideation: No Patient has homicidal ideation: No - Past Medical History Cardiac Medical History: Reports: Hx Congestive Heart Failure, Hx Coronary Artery Disease - hyperlipidemia, Hx Hypertension Pulmonary Medical History: Denies: Hx Asthma, Hx Bronchitis, Hx COPD, Hx Pneumonia Endocrine Medical History: Reports: Hx Diabetes Mellitus Type 2 - diet controlled Renal/ Medical History: Reports: Hx End Stage Renal Disease, Hx Hemodialysis Musculoskeltal Medical History: Reports Hx Arthritis - left knee Past Surgical History: Reports: Hx Vascular Surgery - Laparoscopic peritoneal dialysis catheter insertion. Right forearm shunt - Immunizations Hx Diphtheria, Pertussis, Tetanus Vaccination: Yes - unknown Hx Pneumococcal Vaccination: 06/05/16 Review of Systems - Review of Systems Notes: REVIEW OF SYSTEMS: CONSTITUTIONAL : Says he may have had a little fever. Feels generalized weakness. EENT: Denies eye, ear, nose or mouth or throat pain or other symptoms. CARDIOVASCULAR: Denies chest pain. RESPIRATORY: Has had a cough productive of some green phlegm. Feels short of breath at times. GASTROINTESTINAL: Denies abdominal pain or nausea, vomiting, or diarrhea. GENITOURINARY: Does not make any urine. MUSCULOSKELETAL: Denies back or neck pain. Denies joint pain or swelling. SKIN: Denies rash or skin lesions. NEUROLOGICAL: Denies LOC or altered mental status. Denies headache. Denies sensory loss or motor deficits. ALL OTHER SYSTEMS REVIEWED AND NEGATIVE. Physical Exam - Vital signs Vitals: Temp Pulse Resp BP Pulse Ox 98.5 F 74 20 89/52 L 100 07/01/17 14:37 07/01/17 14:37 07/01/17 14:37 07/01/17 14:37 07/01/17 14:37 Interpretation: Hypotensive - Notes Notes: PHYSICAL EXAMINATION: GENERAL: Well-appearing, in no acute distress. Blood pressures slightly low at 89/52. Heart rate only 79, however. O2 sat 99%. Afebrile. HEAD: Atraumatic, normocephalic. EYES: Pupils equal round and reactive to light, extraocular movements intact. ENT: oropharynx clear without exudates. Moist mucous membranes. NECK: Normal range of motion, supple. LUNGS: Breath sounds clear and equal bilaterally. HEART: Regular rate and rhythm without murmurs. ABDOMEN: Soft, nontender. No guarding or rebound. No masses. BACK: No tenderness throughout entire back. EXTREMITIES: Normal range of motion without pain. Shunt in right forearm. NEUROLOGICAL: Normal speech, normal gait. Normal sensory, motor, and reflex exams. Awake, alert, and oriented x3. Cranial nerves normal. PSYCH: Normal mood, normal affect. SKIN: Warm, dry, no rashes. Course - Re-evaluation Re-evalutation: 07/01/17 16:23 Patient's hemoglobin is 6.8 this evening and it was 7.1 after transfusion Monday. Spoke with Dr. Mendes who is on-call for this patient's primary care provider , and he will put the patient on observation to receive a couple units of packed cells tonight. - Vital Signs Vital signs: Temp Pulse Resp BP Pulse Ox 98.5 F 74 25 H 96/61 L 97 07/01/17 14:37 07/01/17 14:37 07/01/17 15:01 07/01/17 15:00 07/01/17 15:01 - Laboratory Result Diagrams: 07/01/17 14:55 07/01/17 14:55 Laboratory results interpreted by me: 07/01/17 07/01/17 14:55 14:55 RBC 2.67 L Hgb 6.8 L Hct 21.4 L MCH 25.5 L MCHC 31.9 L RDW 20.4 H Lymphocytes % 12.9 L Chloride 94 L BUN 57 H Creatinine 10.50 H Est GFR ( Amer) 6 L Est GFR (Non-Af Amer) 5 L Calcium 7.6 L ALT 16 L - Diagnostic Test Radiology results interpreted by wi: 07/01/17 16:27 Chest x-ray is essentially normal. - EKG Interpretation by [place] EKG shows normal: Sinus rhythm Rate: Normal Rhythm: NSR Additional EKG results interpreted by wi: 07/01/17 16:30 EKG is essentially normal. Discharge - Discharge Clinical Impression: Anemia, Renal failure Condition: Stable Disposition: ADMITTED OBSERVATION Admitting Provider: [facility] Unit Admitted: Medical Floor
[2017-07-01] MEDS ORDERED: NORMAL SALINE 250 ML IV PRN (16:09)
[2017-07-01] MEDS ORDERED: NORMAL SALINE 500 ML IV ONE (16:24)
[2017-07-02] MEDS ORDERED: CALCIUM ACETATE 667 MG CAPSULE PO PRN (00:15)
[2017-07-02] MEDS ORDERED: COLCHICINE 0.6 MG TABLET PO PRN ×2 (00:15→00:20)
[2017-07-02 02:05] LABS: MEAN CORPUSCULAR HEMOGLOBIN 26.4 pg (27.0-33.4); MEAN CORPUSCULAR HGB CONC 32.6 g/dL (32.0-36.0); MEAN CORPUSCULAR VOLUME 81 fl (80-97); PLATELET COUNT 275 10^3/uL (150-450); RED BLOOD COUNT 2.71 10^6/uL (4.35-5.55); RED CELL DISTRIBUTION WIDTH 19.1 % (11.5-14.0); WHITE BLOOD COUNT 5.6 10^3/uL (4.0-10.5)
[2017-07-02 02:21] LABS: HEMOGLOBIN 7.2 g/dL (13.5-17.0)
[2017-07-02 08:23] LABS: HEMATOCRIT 24.7 % (37.9-51.0); HEMOGLOBIN 8.1 g/dL (13.5-17.0); MEAN CORPUSCULAR HEMOGLOBIN 26.9 pg (27.0-33.4); MEAN CORPUSCULAR HGB CONC 32.9 g/dL (32.0-36.0); MEAN CORPUSCULAR VOLUME 82 fl (80-97); PLATELET COUNT 289 10^3/uL (150-450); RED BLOOD COUNT 3.03 10^6/uL (4.35-5.55); RED CELL DISTRIBUTION WIDTH 18.1 % (11.5-14.0); WHITE BLOOD COUNT 5.6 10^3/uL (4.0-10.5)
[2017-07-02] MEDS ORDERED: ASPIRIN 81 MG TABLET, CHEWABLE PO SCH (10:00)
[2017-07-02] MEDS ORDERED: AMLODIPINE BESYLATE 5 MG TABLET PO SCH (10:00)
[2017-07-02] MEDS ORDERED: CLONIDINE HCL 0.1 MG TABLET PO SCH (10:00)
[2017-07-02] MEDS ORDERED: ALLOPURINOL 100 MG TABLET PO SCH (10:00)
[2017-07-02] MEDS ORDERED: METOPROLOL TARTRATE 25 MG TABLET PO SCH (10:00)
[2017-07-02 11:51] VITALS: BP 101/61
--- NOTE | 2017-07-02 11:52 | EKG REPORT ---
SEVERITY:- BORDERLINE ECG - SINUS RHYTHM BORDERLINE LEFT AXIS DEVIATION BORDERLINE PROLONGED QT INTERVAL : Confirmed by: Ashli Shields MD 02-Jul-2017 11:51:52
--- NOTE | 2017-07-02 12:46 | PDOC H&P ---
History of Present Illness Admission Date/PCP: 07/01/17 16:54 AMINTA JIMENEZ History of Present Illness: HALIMA STEARNS is a 61 year old male, he has end-stage renal disease on maintenance hemodialysis, he had hemodialysis yesterday he came to the emergency room for evaluation of fatigue, in the emergency room blood work was done including hemogram revealed hemoglobin of 6, he was transfused with red blood cells on Monday for anemia he denied any passage of black tarry stool he also stated that he was recently evaluated with EGD and colonoscopy and he was advised that the study was normal. He has no chest pain Past Medical History Cardiac Medical History: Reports: Coronary Artery Disease Renal/ Medical History: Reports: End Stage Renal Disease Musculoskeltal Medical History: Reports: Arthritis - left knee Past Surgical History Past Surgical History: Reports: Vascular Surgery - Laparoscopic peritoneal dialysis catheter insertion. Right forearm shunt Social History Smoking Status: Current Every Day Smoker Frequency of Alcohol Use: None Hx Recreational Drug Use: No Drugs: None Hx Prescription Drug Abuse: No - Advance Directive Resuscitation Status: Full Code Family History Family History: Reviewed & Not Pertinent, CAD, DM Parental Family History Reviewed: Yes Children Family History Reviewed: Yes Sibling(s) Family History Reviewed.: Yes Medication/Allergy Home Medications: Calcium Acetate [Phoslo 667 mg Capsule] 667 mg PO ASDIR PRN 07/02/17 Calcium Acetate [Phoslo 667 mg Capsule] 667 mg PO MEALS 07/02/17 Metoprolol Tartrate [Lopressor 25 mg Tablet] 25 mg PO Q12 07/02/17 Allergies/Adverse Reactions: No Known Allergies Allergy (Unverified 12/05/16 08:48) Review of Systems Constitutional: PRESENT: fatigue, weakness Eyes: ABSENT: visual disturbances Ears: ABSENT: hearing changes Cardiovascular: ABSENT: chest pain, dyspnea on exertion, edema, orthropnea, palpitations Respiratory: ABSENT: cough, hemoptysis Gastrointestinal: ABSENT: abdominal pain, constipation, diarrhea, hematemesis, hematochezia, nausea, vomiting Genitourinary: ABSENT: dysuria, hematuria Musculoskeletal: ABSENT: joint swelling Integumentary: ABSENT: rash, wounds Neurological: ABSENT: abnormal gait, abnormal speech, confusion, dizziness, focal weakness, syncope Psychiatric: ABSENT: anxiety, depression, homidical ideation, suicidal ideation Endocrine: ABSENT: cold intolerance, heat intolerance, menstrual abnormalities, polydipsia, polyuria Hematologic/Lymphatic: ABSENT: easy bleeding, easy bruising, lymphadenopathy Physical Exam Vital Signs: Temp Pulse Resp BP Pulse Ox 99.0 F 67 18 101/61 100 07/02/17 11:47 07/02/17 11:47 07/02/17 11:47 07/02/17 11:47 07/02/17 11:47 Intake & Output 07/01/17 07/02/17 07/03/17 06:59 06:59 06:59 Intake Total 1400 Output Total 200 Balance 1200 Weight 84.6 kg General appearance: PRESENT: no acute distress, well-developed, well-nourished Head exam: PRESENT: atraumatic, normocephalic Eye exam: PRESENT: conjunctiva pink, EOMI, PERRLA Ear exam: PRESENT: normal external ear exam Mouth exam: PRESENT: moist, tongue midline Neck exam: PRESENT: full ROM Respiratory exam: PRESENT: clear to auscultation jerman Cardiovascular exam: PRESENT: RRR, +S1, +S2 Pulses: PRESENT: normal dorsalis pedis pul, +2 pedal pulses bilateral Vascular exam: PRESENT: normal capillary refill GI/Abdominal exam: PRESENT: normal bowel sounds, soft Rectal exam: PRESENT: deferred Neurological exam: PRESENT: alert Psychiatric exam: PRESENT: appropriate affect, normal mood Skin exam: PRESENT: dry, intact, warm Results Laboratory Results: 07/02/17 08:16 07/02/17 07/02/17 01:49 08:16 WBC 5.6 5.6 RBC 2.71 L 3.03 L Hgb 7.2 L 8.1 L Hct 22.0 L 24.7 L MCV 81 82 MCH 26.4 L 26.9 L MCHC 32.6 32.9 RDW 19.1 H 18.1 H Plt Count 275 289 Impressions: Chest X-Ray 07/01/17 14:56 IMPRESSION: No acute radiographic finding in the chest. Assessment & Plan - Diagnosis (1) Anemia Qualifiers: Anemia type: unspecified type Qualified Code(s): D64.9 - Anemia, unspecified Is this a current diagnosis for this admission?: Yes Plan: Patient was transfused with 3 units of red blood cells ,he will need further evaluation to determine the etiology of the anemia, this could be done outpatient (2) End stage renal disease on dialysis Is this a current diagnosis for this admission?: Yes
--- NOTE | 2017-07-02 12:48 | PDOC DISCHARGE SUMMARY ---
General - Admit/Disc Date/PCP Admission Date/Primary Care Provider: 07/01/17 16:54 AMINTA JIMENEZ Discharge Date: 07/02/17 - Discharge Diagnosis (1) Anemia Is this a current diagnosis for this admission?: Yes (2) End stage renal disease on dialysis Is this a current diagnosis for this admission?: Yes - Additional Information Resuscitation Status: Full Code Discharge Diet: As Tolerated Discharge Activity: Activity As Tolerated Home Medications: Calcium Acetate [Phoslo 667 mg Capsule] 667 mg PO ASDIR PRN 07/02/17 Calcium Acetate [Phoslo 667 mg Capsule] 667 mg PO MEALS 07/02/17 Metoprolol Tartrate [Lopressor 25 mg Tablet] 25 mg PO Q12 07/02/17 History of Present Illness History of Present Illness: HALIMA STEARNS is a 61 year old male, he has end-stage renal disease on maintenance hemodialysis, he had hemodialysis yesterday he came to the emergency room for evaluation of fatigue, in the emergency room blood work was done including hemogram revealed hemoglobin of 6, he was transfused with red blood cells on Monday for anemia he denied any passage of black tarry stool he also stated that he was recently evaluated with EGD and colonoscopy and he was advised that the study was normal. He has no chest pain Hospital Course Hospital Course: Patient was admitted for observation, transfused with 3 units of packed red blood cells, stable, no active bleeding Physical Exam Vital Signs: Temp Pulse Resp BP Pulse Ox 99.0 F 67 18 101/61 100 07/02/17 11:47 07/02/17 11:47 07/02/17 11:47 07/02/17 11:47 07/02/17 11:47 Intake & Output 07/01/17 07/02/17 07/03/17 06:59 06:59 06:59 Intake Total 1400 Output Total 200 Balance 1200 Weight 84.6 kg General appearance: PRESENT: no acute distress, well-developed, well-nourished Head exam: PRESENT: atraumatic, normocephalic Eye exam: PRESENT: conjunctiva pink, EOMI, PERRLA. ABSENT: scleral icterus Ear exam: PRESENT: normal external ear exam Mouth exam: PRESENT: moist, tongue midline Neck exam: PRESENT: full ROM Respiratory exam: PRESENT: clear to auscultation jerman Cardiovascular exam: PRESENT: RRR, +S1, +S2 Vascular exam: PRESENT: normal capillary refill GI/Abdominal exam: PRESENT: normal bowel sounds, soft Rectal exam: PRESENT: deferred Neurological exam: PRESENT: alert Psychiatric exam: PRESENT: appropriate affect, normal mood Skin exam: PRESENT: dry, intact, warm Results Laboratory Results: 07/02/17 08:16 07/02/17 07/02/17 01:49 08:16 WBC 5.6 5.6 RBC 2.71 L 3.03 L Hgb 7.2 L 8.1 L Hct 22.0 L 24.7 L MCV 81 82 MCH 26.4 L 26.9 L MCHC 32.6 32.9 RDW 19.1 H 18.1 H Plt Count 275 289 Impressions: Chest X-Ray 07/01/17 14:56 IMPRESSION: No acute radiographic finding in the chest.
== END 2017-07-02 12:00 | disposition home or self-care (01) ==
LOC: ER 14:23 → EH 16:54 → 5 20:14
PROVIDERS: ADMIT Internal Medicine Geriatric Medicine; ATTEND Internal Medicine Geriatric Medicine
PROC: 30233N1 Transfusion of Nonautologous Red Blood Cells into Peripheral Vein, Percutaneous Approach (ICD-10-PCS; principal; 2017-07-01)
PROC: 30233N1 Transfusion of Nonautologous Red Blood Cells into Peripheral Vein, Percutaneous Approach (ICD-10-PCS; 2017-07-02)
DX: D64.9 Anemia, unspecified (principal); I13.2 Hypertensive heart and chronic kidney disease with heart failure and with stage 5 chronic kidney disease, or end stage renal disease; N18.6 End stage renal disease; E11.22 Type 2 diabetes mellitus with diabetic chronic kidney disease; I50.9 Heart failure, unspecified; Z99.2 Dependence on renal dialysis; I25.10 Atherosclerotic heart disease of native coronary artery without angina pectoris; R05 Cough; F17.200 Nicotine dependence, unspecified, uncomplicated; I95.9 Hypotension, unspecified; Z79.899 Other long term (current) drug therapy; Z82.49 Family history of ischemic heart disease and other diseases of the circulatory system
CPT/HCPCS: 93005; 99285; 96360; 86900; 86901; 36415 ×2; 87040; 36430; 86850; 85025; 85027; 80053; 86920; 71046; 93010; G0378 ×2; P9016 ×2; A9270; J7040

== ENCOUNTER 2017-07-18 08:52 | Day surgery (SDC) | payer MEDICARE, OTHER ==
[~2017-07-18 08:52] MED LIST changes: -ACETAMINOPHEN 325 MG TABLET PO PRN; +DIAZEPAM 5 MG TABLET PO PRN; -DIPHENHYDRAMINE HCL 25 MG CAPSULE PO PRN; -FUROSEMIDE INJ/PF 20 MG/2 ML SDV IV PRN; +OXYCODONE-ACETAMINOPHEN 5-325 MG TABLET PO PRN
[2017-07-18] MEDS ORDERED: LIDOCAINE 0.5% INJ-PF (5 MG/ML) 50 ML SDV ONE (09:31)
[2017-07-18] MEDS ORDERED: HEPARIN SOD (PORCINE) 5,000 UNIT/ML 1 ML SYRINGE ONE (09:32)
[2017-07-18] MEDS ORDERED: MIDAZOLAM 2 MG/2 ML INJ ONE (09:32)
[2017-07-18] MEDS ORDERED: FENTANYL CITRATE INJ/PF 100 MCG/2 ML AMPUL ONE (09:32)
[2017-07-18] MEDS ORDERED: DIAZEPAM 5 MG TABLET ONE (09:49)
[2017-07-18] MEDS ORDERED: OXYCODONE-ACETAMINOPHEN 5-325 MG TABLET ONE (09:50)
[2017-07-18 10:01] LABS: HEMATOCRIT 27.1 % (37.9-51.0); HEMOGLOBIN 8.7 g/dL (13.5-17.0); MEAN CORPUSCULAR HEMOGLOBIN 27.1 pg (27.0-33.4); MEAN CORPUSCULAR VOLUME 85 fl (80-97); PLATELET COUNT 406 10^3/uL (150-450); RED CELL DISTRIBUTION WIDTH 20.9 % (11.5-14.0)
[2017-07-18 10:19] LABS: ANION GAP 13 (5-19); BLOOD UREA NITROGEN 35 mg/dL (7-20); CALCIUM 7.4 mg/dL (8.4-10.2); CARBON DIOXIDE 30 mmol/L (22-30); CHLORIDE 101 mmol/L (98-107); GLUCOSE 99 mg/dL (75-110); POTASSIUM 4.4 mmol/L (3.6-5.0); SODIUM 143.7 mmol/L (137-145)
--- NOTE | 2017-07-18 11:50 | PDOC H&P ---
General Chief Complaint: The patient is referred for angiogram. The goal is improving fistula function. Low flows have been noted. - Diagnosis (1) Dialysis AV fistula malfunction Is this a Current Diagnosis?: Yes (2) End stage renal disease on dialysis Is this a Current Diagnosis?: Yes - Current Medications/Allergies Home Medications: Calcium Acetate [Phoslo 667 mg Capsule] 667 mg PO MEALS 07/02/17 Metoprolol Tartrate [Lopressor 25 mg Tablet] 25 mg PO Q12 07/02/17 Amlodipine Besylate [Norvasc 5 mg Tablet] 5 mg PO Q12 07/18/17 Clonidine HCl 0.1 mg PO BID 07/18/17 Omeprazole 20 mg PO DAILY 07/18/17 Allergies/Adverse Reactions: No Known Allergies Allergy (Unverified 12/05/16 08:48) Past Medical History Cardiac Medical History: Reports: Congestive Heart Failure, Coronary Artery Disease - hyperlipidemia, Hypertension Denies: Myocardial Infarction Pulmonary Medical History: Denies: Asthma, Bronchitis, Chronic Obstructive Pulmonary Disease (COPD), Pneumonia Neurological Medical History: Denies: Seizures Endocrine Medical History: Reports: Diabetes Mellitus Type 2 - diet controlled Renal/ Medical History: Reports: End Stage Renal Disease Musculoskeltal Medical History: Reports: Arthritis - left knee Psychiatric Medical History: Denies: Depression Hematology: Denies: Anemia Past Surgical History Past Surgical History: Reports: Vascular Surgery - Laparoscopic peritoneal dialysis catheter insertion. Right forearm shunt Family History Family History: Reviewed & Not Pertinent, CAD, DM Parental Family History Reviewed: No Children Family History Reviewed: No Sibling(s) Family History Reviewed.: No Social History Smoking Status: Former Smoker Frequency of Alcohol Use: None Hx Recreational Drug Use: No Drugs: None Hx Prescription Drug Abuse: No Physical Exam Vital Signs: Temp Pulse Resp BP Pulse Ox 97.9 F 70 18 137/77 H 100 07/18/17 08:45 07/18/17 08:45 07/18/17 08:45 07/18/17 08:45 07/18/17 08:45 Intake & Output 07/17/17 07/18/17 07/19/17 06:59 06:59 06:59 Weight 91.626 kg Additional comments: Constitutional: Well-developed well-nourished -[place] gentleman. No apparent acute distress. Eyes: Mucous membranes pink and moist, pupils equal and reactive to light. Conjunctiva normal. Arcus senilis present. ENT: Hearing grossly normal. External pinna normal to inspection. Teeth intact. Tongue normal to inspection. Cardiac: Heart sounds normal. Respiratory breath sounds are present bilaterally, normal. Normal respiratory effort. Psychiatric: Judgment, memory, insight seem normal. Mood is pleasant and appropriate. Extremities: Upper extremities show normal range of movement. Pulses present noted to the radial arteries. Capillary refill normal. No cyanosis noted. No muscle wasting noted. Left forearm radiocephalic fistula noted. Somewhat softer than would be expected. Impression/Plan Plan: Fistula angiogram and possible angioplasty is recommended. The risks, benefits , expected outcome and alternatives are familiar to the patient. He wishes to proceed.
--- NOTE | 2017-07-18 11:53 | PDOC DISCHARGE SUMMARY ---
Discharge Summary (SDC) - Discharge Final Diagnosis: #1 malfunctioning AV fistula, left radiocephalic. 2. End-stage renal disease on hemodialysis. 4. Hepatitis C. 5. Hypertension. Date of Surgery: 07/18/17 Discharge Date: 07/18/17 Condition: Good Treatment or Instructions: Discharge home [after recovery per ASU criteria]. Diet , [renal],as tolerated, when fully awake advance as tolerated. Activities within moderation encouraged. Follow up in my office by appointment in about [1 week]. Call for appointment. Leave wounds [covered], [keep clean and dry, until hemodialysis]. Hold of on school/work [until evaluation in office]. Meds per med rec. May shower [in 48 hrs], [try to keep operated area as dry as possible]. Referrals: Mayra FONSECA MD [Primary Care Provider] - Discharge Diet: Other (Comments) - Renal. Respiratory Treatments at Home: Deep Breathing/Coughing Discharge Activity: Activity As Tolerated Report the Following to Your Physician Immediately: Shortness of Breath, Unusual Bleeding
[2017-07-18 12:30] VITALS: BP 144/72
--- NOTE | 2017-07-18 12:55 | RADIOLOGY REPORT (SQ) ---
EXAM DESCRIPTION: FISTULAGRAM W/PLASTY COMPLETED DATE/TIME: 07/18/2017 11:21 am REASON FOR STUDY: T82.858A T82.858A STENOSIS OF OTHER VASCULAR PROSTH DEV/GRFT, INIT COMPARISON: None. FLUOROSCOPY TIME: 1.1 minute. 11 images saved to PACS. TECHNIQUE: Intra-operative images acquired during surgical procedure to evaluate progress. NUMBER OF IMAGES: 11 images. LIMITATIONS: None. FINDINGS: Imaging in fluoroscopy during right upper extremity dialysis access evaluation and plasty by Dr. Calabrese . Please refer to the operative report for further details. IMPRESSION: INTRA PROCEDURAL IMAGING ABOVE . COMMENT: Quality ID [id number]: Final reports for procedures using fluoroscopy that document radiation exp osure indices, or exposure time and number of fluorographic images (if radiation exposure indices are not available) Please consult full operative report of the attending physician for description of the procedure. TECHNICAL DOCUMENTATION: JOB ID: [id number] [employer]- All Rights Reserved
--- NOTE | 2017-07-18 12:55 | Operative Report ---
Operative Report DATE OF SURGERY: 07/18/17 PREOPERATIVE DIAGNOSIS: #1 malfunctioning AV fistula, left radiocephalic. 2. End-stage renal disease on hemodialysis. 4. Hepatitis C. 5. Hypertension. POSTOPERATIVE DIAGNOSIS: #1 malfunctioning AV fistula, left radiocephalic. Post angioplasty. 2. End-stage renal disease on hemodialysis. 4. Hepatitis C. 5. Hypertension. OPERATION: 1. Needle introduction into fistula. 2. Multiple AV fistula angioplasty. 3. Angiogram and interpretation. SURGEON: CHANDU VERMA OYSTER FARMER: None. ANESTHESIA: Moderate Sedation TISSUE REMOVED OR ALTERED: Not applicable. COMPLICATIONS: None. ESTIMATED BLOOD LOSS: 5 mL. INTRAOPERATIVE FINDINGS: An area of stenosis about 2 cm long and about 4 cm from the radiocephalic junction. Representing about 70% stenosis. Improved with residual about 5%. Probably of great hemodynamics significant is a large draining vein at about 5 cm from the anastomosis. This seems lateral. Ligation should improve the antegrade flow through the fistula and will be considered the next few weeks. An 8 mm angioplasty balloon was used, and future a 9 mm may be needed. In this patient with a eli left arm transposed fistula. PROCEDURE: PROCEDURE: After verifying the procedure and having obtained informed consent, the patient's right arm and forearm were prepared with Chlorhexidine and draped out with sterile linen. Local anesthesia infiltrated. Percutaneous access into the fistula ,[retrograde], obtained about [20 cm] from the arteriovenous anastomosis using a micro puncture needle followed by micro puncture wire and then a micro puncture catheter. Angioplasty was elected. A 0.035 [place] wire was inserted, and over this, a 6 [place] short introducer was placed, this was followed by a 6 mm angioplasty balloon . Angioplasty was now done at the perianastomotic segment. This was done using a 3 mils syringe sustained for 2 minutes. Angiogram demonstrated successful outcome.]. Completion angiogram demonstrated [satisfactory result]. The instrumentation was now withdrawn over hand pressure for 10 minutes. Dressings applied, procedure concluded. Exposure time: 1.1 minutes Radiation: 1.72 Jael terrell. Contrast: 50 mL of Isovue-M 300 low osmolality. DICTATING PHYSICIAN: CHANDU BLACKBURN M.D. cc: CHANDU BLACKBURN M.D. ([id number]) >>
== END 2017-07-18 12:30 | disposition home or self-care (01) ==
LOC: CCL 08:52
PROVIDERS: ATTEND Surgery
PROC: 057F3DZ Dilation of Left Cephalic Vein with Intraluminal Device, Percutaneous Approach (ICD-10-PCS; principal; 2017-07-18)
DX: T82.858A Stenosis of other vascular prosthetic devices, implants and grafts, initial encounter (principal); Y83.2 Surgical operation with anastomosis, bypass or graft as the cause of abnormal reaction of the patient, or of later complication, without mention of misadventure at the time of the procedure; E11.22 Type 2 diabetes mellitus with diabetic chronic kidney disease; I12.0 Hypertensive chronic kidney disease with stage 5 chronic kidney disease or end stage renal disease; N18.6 End stage renal disease; Z99.2 Dependence on renal dialysis; M17.12 Unilateral primary osteoarthritis, left knee; B19.20 Unspecified viral hepatitis C without hepatic coma; Z79.899 Other long term (current) drug therapy; Z87.891 Personal history of nicotine dependence
CPT/HCPCS: 36415; 85027; 80048; 36902; C1752; C1887; C1769; J1644 ×2; A9270 ×2; J3010; J3490; J2250

== ENCOUNTER 2017-12-19 10:12 | Day surgery (SDC) | payer MEDICARE, OTHER ==
[2017-12-19] MEDS ORDERED: DIAZEPAM 5 MG TABLET ONE (10:27)
[2017-12-19 10:58] LABS: HEMOGLOBIN 13.4 g/dL (13.5-17.0); MEAN CORPUSCULAR HEMOGLOBIN 27.3 pg (27.0-33.4); MEAN CORPUSCULAR HGB CONC 32.8 g/dL (32.0-36.0); MEAN CORPUSCULAR VOLUME 83 fl (80-97); PLATELET COUNT 271 10^3/uL (150-450); RED BLOOD COUNT 4.93 10^6/uL (4.35-5.55); RED CELL DISTRIBUTION WIDTH 25.7 % (11.5-14.0)
[2017-12-19] MEDS ORDERED: LIDOCAINE 0.5% INJ-PF (5 MG/ML) 50 ML SDV ONE (11:07)
[2017-12-19 11:15] LABS: BLOOD UREA NITROGEN 49 mg/dL (7-20); CALCIUM 8.8 mg/dL (8.4-10.2); CARBON DIOXIDE 24 mmol/L (22-30); CHLORIDE 95 mmol/L (98-107); GLUCOSE 94 mg/dL (75-110); POTASSIUM 5.7 mmol/L (3.6-5.0)
[2017-12-19] MEDS ORDERED: MIDAZOLAM 2 MG/2 ML INJ ONE (11:19)
[2017-12-19] MEDS ORDERED: FENTANYL CITRATE INJ/PF 100 MCG/2 ML AMPUL ONE (11:19)
[2017-12-19] MEDS ORDERED: HEPARIN SOD (PORCINE) 5,000 UNIT/ML 1 ML SYRINGE ONE (11:20)
[2017-12-19 11:22] LABS: SODIUM 142.5 mmol/L (137-145)
[2017-12-19 11:28] LABS: ANION GAP 24 (5-19)
--- NOTE | 2017-12-19 12:51 | Discharge Summary ---
Discharge Summary (SDC) - Discharge Final Diagnosis: #1 left radiocephalic fistula AV malfunction. 2. End-stage renal disease on hemodialysis. 3. Hepatitis C. 4. History of positive PPD. 5. Hypertension Date of Surgery: 12/19/17 Discharge Date: 12/19/17 Condition: Good Treatment or Instructions: Discharge home [after recovery per ASU criteria]. Diet , [renal],as tolerated, when fully awake advance as tolerated. Activities within moderation encouraged. Follow up in my office by appointment in about [1 week]. Call for appointment. Leave wounds [covered], [keep clean and dry, until hemodialysis. Meds per med drink. Office visit in 1 week]. Hold of on school/work [until evaluation in office]. May shower [in 48 hrs], [try to keep operated area as dry as possible]. Referrals: Mayra FONSECA MD [Primary Care Provider] - Discharge Diet: Other (Comments) - Renal. Respiratory Treatments at Home: Deep Breathing/Coughing Discharge Activity: Activity As Tolerated Report the Following to Your Physician Immediately: Shortness of Breath
--- NOTE | 2017-12-19 13:00 | Operative Report ---
Operative Report DATE OF SURGERY: 12/19/17 PREOPERATIVE DIAGNOSIS: #1 left radiocephalic fistula AV malfunction. 2. End- stage renal disease on hemodialysis. 3. Hepatitis C. 4. History of positive PPD. 5. Hypertension POSTOPERATIVE DIAGNOSIS: #1 left radiocephalic fistula AV malfunction. 2. End- stage renal disease on hemodialysis. 3. Hepatitis C. 4. History of positive PPD. 5. Hypertension OPERATION: 1. Needle axis and arteriovenous fistula, left radiocephalic. 2. Distal angioplasty. 3. Angiogram and interpretation. SURGEON: CHANDU VEMRA DISEASE CASE MANAGER: None. ANESTHESIA: Moderate Sedation TISSUE REMOVED OR ALTERED: Not applicable. COMPLICATIONS: None. ESTIMATED BLOOD LOSS: 2 mL. INTRAOPERATIVE FINDINGS: Of a well founded left radiocephalic fistula. An area noticed on gross examination between about 2 3-1/2 cm which was noticeable than proximally or distally with hyper pulsatility proximal. This conformed to an area of stenosis about 70% of the adjacent lumen this was corrected with a residual approximately 15-20% stenosis. In spite of high-pressure balloon balloon dilatation up to 27 lakia. The result was accepted and drug-eluting balloon used to cover this area. The hope is to forestall any further early scarring hopefully to prepare for more attempts at reinflating this area of. Require a more high pressure balloon or a cutting balloon. In the meanwhile this should improve the quality of dialysis. PROCEDURE: PROCEDURE: After verifying the procedure and having obtained informed consent, the patient's right arm and forearm were prepared with Chlorhexidine and draped out with sterile linen. Local anesthesia infiltrated. Percutaneous access into the fistula ,[retrograde], obtained about [20 cm] from the arteriovenous anastomosis using a micro puncture needle followed by micro puncture wire and then a micro puncture catheter. a 6 Croatian short introducer was placed, this was followed by a Kumpe balloon which was manipulated down to just below the level of the arteriovenous anastomosis. Angiograms were now done. Angioplasty was elected and a 6 mm angioplasty balloon inserted. Angioplasty was now done at the culprit area.. This was done very carefully and up to 10 lakia sustained for 2 to 3 minutes. 3 separate angioplasties were done with a maximum of 15 lakia. Angiogram demonstrated a partly successful outcome. The balloon was now swapped over the wire for a 6 mm conquest type high-pressure angioplasty balloon. Angioplasty was Done. Inflating up to 2t atmospheres for 3 minutes at a time.]. Completion angiogram demonstrated [an acceptable result]. In this patient with a very difficult to dilate stenosis a drug-eluting balloon can be expected to reduce the frequency of intervention. A 6 mm drug-eluting balloon was now inserted over the culprit area and inflated up to 11 lakia, sustained for 3 minutes. The post angiogram demonstrated considerable improvement. This was reflected a better pulse in the body of the fistula The instrumentation was now withdrawn over hand held pressure for 5 minutes. Dressings applied, procedure concluded. DICTATING PHYSICIAN: CHANDU BLACKBURN M.D. cc: CHANDU BLACKBURN M.D. ([id number]) >>
[2017-12-19] MEDS ORDERED: DIAZEPAM 5 MG TABLET PO PRN (15:00)
[2017-12-19 15:06] VITALS: BP 123/72
--- NOTE | 2017-12-19 16:06 | RADIOLOGY REPORT (SQ) ---
EXAM DESCRIPTION: FISTULAGRAM W/PLASTY COMPLETED DATE/TIME: 12/19/2017 3:04 pm REASON FOR STUDY: T82.858A COMPARISON: 07/18/2017 FLUOROSCOPY TIME: 4.7 minutes 148 Images saved to PACS LIMITATIONS: None. PROCEDURE: Intra procedural imaging and fluoro FINDINGS: Intra procedural imaging and fluoro during right upper extremity dialysis access evaluatio n and plasty by Dr. Calabrese. IMPRESSION: Intra procedural imaging and fluoro COMMENT: PQRS [id number]: Fluoroscopy time of the procedure is documented in the report. TECHNICAL DOCUMENTATION: JOB ID: [id number] [employer]- All Rights Reserved Reading location - IP/workstation name: [email or web address]
== END 2017-12-19 14:00 | disposition home or self-care (01) ==
LOC: CCL 10:12
PROVIDERS: ATTEND Surgery
DX: T82.858A Stenosis of other vascular prosthetic devices, implants and grafts, initial encounter (principal); Y83.2 Surgical operation with anastomosis, bypass or graft as the cause of abnormal reaction of the patient, or of later complication, without mention of misadventure at the time of the procedure; I12.0 Hypertensive chronic kidney disease with stage 5 chronic kidney disease or end stage renal disease; N18.6 End stage renal disease; Z99.2 Dependence on renal dialysis; E78.5 Hyperlipidemia, unspecified; E11.22 Type 2 diabetes mellitus with diabetic chronic kidney disease; B19.20 Unspecified viral hepatitis C without hepatic coma; F17.210 Nicotine dependence, cigarettes, uncomplicated; Z79.899 Other long term (current) drug therapy; Z79.82 Long term (current) use of aspirin; Z79.891 Long term (current) use of opiate analgesic; R76.11 Nonspecific reaction to tuberculin skin test without active tuberculosis
CPT/HCPCS: 36415; 85027; 80048; 36902; C1725 ×2; C1752; Q9967; C1769; J2250; J1644 ×2; A9270; J3010; J3490

== ENCOUNTER 2019-03-26 09:54 | Day surgery (SDC) | payer MEDICARE, OTHER ==
[2019-03-26] MEDS ORDERED: HEPARIN SOD (PORCINE) 5,000 UNIT/ML 1 ML VIAL ONE (11:09)
[2019-03-26] MEDS ORDERED: MIDAZOLAM 2 MG/2 ML INJ ONE (11:09)
[2019-03-26] MEDS ORDERED: LIDOCAINE 0.5% INJ-PF (5 MG/ML) 50 ML SDV ONE ×2 (11:09→11:35)
[2019-03-26] MEDS ORDERED: FENTANYL CITRATE INJ/PF 100 MCG/2 ML AMPUL ONE (11:09)
[2019-03-26] MEDS ORDERED: HEPARIN SODIUM,PORCINE/NS/PF 0 UNIT/0 ML RTUINJ IV ONE (11:10)
[2019-03-26 11:11] LABS: HEMATOCRIT 34.4 % (37.9-51.0); MEAN CORPUSCULAR HEMOGLOBIN 27.5 pg (27.0-33.4); MEAN CORPUSCULAR HGB CONC 31.9 g/dL (32.0-36.0); MEAN CORPUSCULAR VOLUME 86 fl (80-97); PLATELET COUNT 239 10^3/uL (150-450); RED CELL DISTRIBUTION WIDTH 16.7 % (11.5-14.0); WHITE BLOOD COUNT 5.2 10^3/uL (4.0-10.5)
[2019-03-26 11:29] LABS: ANION GAP 14 (5-19); BLOOD UREA NITROGEN 36 mg/dL (7-20); CALCIUM 9.9 mg/dL (8.4-10.2); CARBON DIOXIDE 29 mmol/L (22-30); CHLORIDE 98 mmol/L (98-107); GLUCOSE 84 mg/dL (75-110); POTASSIUM 4.7 mmol/L (3.6-5.0)
--- NOTE | 2019-03-26 13:34 | Discharge Summary ---
Discharge Summary (SDC) - Discharge Final Diagnosis: #1 malfunctioning AV fistula, right radiocephalic. 2. End-stage renal disease. 3. Hypertension. Date of Surgery: 03/26/19 Discharge Date: 03/26/19 Condition: Fair Treatment or Instructions: Discharge home [after recovery per ASU criteria]. Diet , [renal],as tolerated, when fully awake advance as tolerated. Activities within moderation encouraged. Follow up in my office by appointment in about [1 months. Call for appointment. Leave wounds [covered], [keep clean and dry, until hemodialysis. Meds per med rec. May shower [in 48 hrs], [try to keep operated area as dry as possible]. Discharge Diet: Other (Comments) - Renal, diabetic. Discharge Activity: Activity As Tolerated Report the Following to Your Physician Immediately: Shortness of Breath, Unusual Bleeding
--- NOTE | 2019-03-26 13:37 | PDOC H&P ---
General Chief Complaint: This patient is read across because of decreased flow volumes in his right forearm AV fistula. - Diagnosis (1) Dialysis AV fistula malfunction Is this a Current Diagnosis?: Yes (2) End stage renal disease on dialysis Is this a Current Diagnosis?: Yes - Current Medications/Allergies Home Medications: Calcium Acetate [Phoslo 667 mg Capsule] 667 mg PO MEALS 07/02/17 Metoprolol Tartrate [Lopressor 25 mg Tablet] 25 mg PO Q12 07/02/17 Amlodipine Besylate [Norvasc 5 mg Tablet] 5 mg PO Q12 07/18/17 Calcitriol [Rocaltrol 0.25 Mcg Capsule] 0.25 mcg PO ASDIR PRN 12/18/17 Clonidine [Catapres-Tts 3 (0.3 mg/24 Hr) Transderm Patch] 1 patch TD ASDIR 12/18/17 Allergies/Adverse Reactions: No Known Allergies Allergy (Verified 03/26/19 10:02) Past Medical History Cardiac Medical History: Reports: Congestive Heart Failure, Coronary Artery Disease - hyperlipidemia, Hypertension - MEDS Denies: Myocardial Infarction Pulmonary Medical History: Denies: Asthma, Bronchitis, Chronic Obstructive Pulmonary Disease (COPD), Pneumonia Neurological Medical History: Denies: Seizures Endocrine Medical History: Reports: Diabetes Mellitus Type 2 - diet controlled Renal/ Medical History: Reports: End Stage Renal Disease Musculoskeltal Medical History: Reports: Arthritis - left knee Psychiatric Medical History: Denies: Depression Hematology: Denies: Anemia Past Surgical History Past Surgical History: Reports: Vascular Surgery - Laparoscopic peritoneal dialysis catheter insertion. Right forearm shunt Family History Family History: Reviewed & Not Pertinent, CAD, DM Parental Family History Reviewed: No Children Family History Reviewed: No Sibling(s) Family History Reviewed.: No Social History Smoking Status: Former Smoker Frequency of Alcohol Use: None Hx Recreational Drug Use: No Drugs: None Hx Prescription Drug Abuse: No Physical Exam Vital Signs: Temp Pulse Resp BP Pulse Ox 98.0 F 62 16 142/70 H 100 03/26/19 09:54 03/26/19 09:54 03/26/19 09:54 03/26/19 09:54 03/26/19 09:54 Intake & Output 03/25/19 03/26/19 03/27/19 06:59 06:59 06:59 Weight 81.6 kg Additional comments: Constitutional: Well-developed well-nourished -[place] gentleman. No apparent acute distress. Eyes: Mucous membranes pink and moist, pupils equal and reactive to light. Conjunctiva normal. Arcus senilis noted. ENT: Hearing grossly normal. External pinna normal to inspection. Tongue normal to inspection. Cardiac: Heart sounds normal,. Respiratory: Normal respiratory effort. Psychiatric: Judgment, memory, insight seem normal. Mood is pleasant and appropriate. Extremities: Upper extremities show normal range of movement. Pulses present noted to the radial arteries. Capillary refill normal. No cyanosis noted. No muscle wasting noted. Right-sided forearm radiocephalic fistula in place. Impression/Plan Plan: In this patient with malfunctioning fistula, fistula angiogram and possibly angioplasty indicated.
--- NOTE | 2019-03-26 13:42 | Operative Report ---
Operative Report DATE OF SURGERY: 03/26/19 PREOPERATIVE DIAGNOSIS: #1 malfunctioning AV fistula, right radiocephalic. 2. End-stage renal disease. 3. Hypertension. POSTOPERATIVE DIAGNOSIS: #1 malfunctioning AV fistula, right radiocephalic. 2. End-stage renal disease. 3. Hypertension. OPERATION: 1. Needle access into the fistula. 2. Fistula angioplasty. 3. Drug-eluting fistula angioplasty. 4. Angiogram and interpretation. SURGEON: CHANDU VERMA NURSE CASE MANAGEMENT: None. ANESTHESIA: Moderate Sedation TISSUE REMOVED OR ALTERED: Not applicable. COMPLICATIONS: None. ESTIMATED BLOOD LOSS: 2 mL. INTRAOPERATIVE FINDINGS: Of a well founded right forearm radiocephalic fistula. The initial 2 cm hyper pulsatile suggesting an adjacent stenosis. Angiogram confirms this with a segment of the 1.5 cm with narrowing of the 8% of the adjacent almost entirely corrected by angioplasty with perhaps 5% residual narrowing. Fistula quality much improved post procedure. PROCEDURE: PROCEDURE: After verifying the procedure and having obtained informed consent, the patient's right arm and forearm were prepared with Chlorhexidine and draped out with sterile linen. Local anesthesia infiltrated. Percutaneous access into the fistula ,[retrograde], obtained about [20 cm] from the arteriovenous anastomosis using a micro puncture needle followed by micro puncture wire. and then a micro puncture catheter. Angioplasty was elected. A 0.035 [place] wire was inserted, and over this, a 5 Tajik short introducer was placed, this was followed by a [6 mm] angioplasty balloon . Angioplasty was now done at the perianastomotic segment. This was done very carefully with 3 mils syringe and sustained for 2 minutes. Angiogram demonstrated improved l outcome. The balloon was now swapped over the wire for a 6 mm drug-eluting angioplasty balloon. Angioplasty was done the culprit area. Inflating up to 11 atmospheres for 4 minutes.]. Completion angiogram demonstrated [satisfactory result]. The instrumentation was now withdrawn over hand pressure for 10 minutes . Dressings applied, procedure concluded. Exposure time: 5.8 minutes Radiation: 7.94 Teodora terrell Contrast: 25 mL of Isovue-M 300 low osmolality. DICTATING PHYSICIAN: CHANDU BLACKBURN M.D. cc: CHANDU BLACKBURN M.D. ([id number]) >>
[2019-03-26 14:07] VITALS: BP 165/78
--- NOTE | 2019-03-27 07:57 | RADIOLOGY REPORT (SQ) ---
EXAM DESCRIPTION: FISTULAGRAM W/PLASTY COMPLETED DATE/TIME: 03/26/2019 12:52 pm REASON FOR STUDY: T82.858A T82.858A STENOSIS OF OTHER VASCULAR PROSTH DEV/GRFT, INIT COMPARISON: None. FLUOROSCOPY TIME: 5.8 minutes Spot images saved to PACS. TECHNIQUE: Intra-operative images acquired during surgical procedure to evaluate progress. NUMBER OF IMAGES: 9 LIMITATIONS: None. FINDINGS: Fluoroscopy was provided for intraoperative procedure. Please refer to the operative repo rt for further discussion. IMPRESSION: IMAGE(S) OBTAINED DURING PROCEDURE. COMMENT: Quality ID 145: Final reports for procedures using fluoroscopy that document radiation exp osure indices, or exposure time and number of fluorographic images (if radiation exposure indices are not available) Please consult full operative report of the attending physician for description of the procedure. TECHNICAL DOCUMENTATION: JOB ID: [id number] [employer]- All Rights Reserved Reading location - IP/workstation name: [email or web address]
== END 2019-03-26 14:00 | disposition home or self-care (01) ==
LOC: CCL 09:54
PROVIDERS: ATTEND Surgery
DX: T82.858A Stenosis of other vascular prosthetic devices, implants and grafts, initial encounter (principal); Y83.2 Surgical operation with anastomosis, bypass or graft as the cause of abnormal reaction of the patient, or of later complication, without mention of misadventure at the time of the procedure; I12.0 Hypertensive chronic kidney disease with stage 5 chronic kidney disease or end stage renal disease; E11.22 Type 2 diabetes mellitus with diabetic chronic kidney disease; N18.6 End stage renal disease; Z99.2 Dependence on renal dialysis; Z79.899 Other long term (current) drug therapy
CPT/HCPCS: 36415; 85027; 80048; 36902; C2623; C1752; C1887; C1725; Q9967; C1769; J2250; J1644 ×2; A9270 ×2; J3010; J3490

== ENCOUNTER 2019-08-06 09:46 | Day surgery (SDC) | payer MEDICARE, OTHER ==
[2019-08-06 10:34] LABS: HEMATOCRIT 34.1 % (37.9-51.0); HEMOGLOBIN 11.1 g/dL (13.5-17.0); MEAN CORPUSCULAR HEMOGLOBIN 28.6 pg (27.0-33.4); MEAN CORPUSCULAR HGB CONC 32.7 g/dL (32.0-36.0); MEAN CORPUSCULAR VOLUME 88 fl (80-97); PLATELET COUNT 267 10^3/uL (150-450); RED BLOOD COUNT 3.89 10^6/uL (4.35-5.55); WHITE BLOOD COUNT 5.8 10^3/uL (4.0-10.5)
[2019-08-06] MEDS ORDERED: LIDOCAINE 0.5% INJ-PF (5 MG/ML) 50 ML SDV ONE (10:48)
[2019-08-06] MEDS ORDERED: MIDAZOLAM 2 MG/2 ML INJ ONE (10:49)
[2019-08-06] MEDS ORDERED: FENTANYL CITRATE INJ/PF 100 MCG/2 ML AMPUL ONE (10:49)
[2019-08-06] MEDS ORDERED: HEPARIN SOD (PORCINE) 5,000 UNIT/ML 1 ML VIAL ONE (10:49)
[2019-08-06 11:01] LABS: ANION GAP 16 (5-19); BLOOD UREA NITROGEN 45 mg/dL (7-20); CALCIUM 9.3 mg/dL (8.4-10.2); CARBON DIOXIDE 28 mmol/L (22-30); CHLORIDE 95 mmol/L (98-107); GLUCOSE 94 mg/dL (75-110); POTASSIUM 5.9 mmol/L (3.6-5.0)
--- NOTE | 2019-08-06 12:22 | RADIOLOGY REPORT (SQ) ---
EXAM DESCRIPTION: FISTULAGRAM W/PLASTY COMPLETED DATE/TIME: 08/06/2019 12:09 pm REASON FOR STUDY: T82.858A T82.858A STENOSIS OF OTHER VASCULAR PROSTH DEV/GRFT, INIT COMPARISON: None. FLUOROSCOPY TIME: 3.0 minutes. 93 images saved to PACS. TECHNIQUE: Intra-operative images acquired during surgical procedure to evaluate progress. NUMBER OF IMAGES: 93 images. LIMITATIONS: None. FINDINGS: Imaging in fluoroscopy during upper extremity dialysis access evaluation and plasty by Dr. Calabrese . Please refer to the operative report for further details. IMPRESSION: INTRA PROCEDURAL IMAGING ABOVE . COMMENT: Quality ID 145: Final reports for procedures using fluoroscopy that document radiation exp osure indices, or exposure time and number of fluorographic images (if radiation exposure indices are not available) Please consult full operative report of the attending physician for description of the procedure. TECHNICAL DOCUMENTATION: JOB ID: [id number] 2010 [employer]- All Rights Reserved Reading location - IP/workstation name: [email or web address]
[2019-08-06] MEDS ORDERED: CALCIUM GLUCONATE 1 GM/NS 50 ML RTU IV ONE (13:00)
[2019-08-06] MEDS ORDERED: SODIUM POLYSTYRENE SULFONATE 15 GM/60 ML PO ONE (13:30)
[2019-08-06] MEDS ORDERED: CALCIUM GLUCONATE 1000 MG/10 ML INJ IV ONE (13:30)
[2019-08-06 14:39] VITALS: BP 127/64
--- NOTE | 2019-08-06 14:47 | Discharge Summary ---
Discharge Summary (SDC) - Discharge Final Diagnosis: #1 malfunctioning AV fistula, right radiocephalic. 2. Hyperkalemia. 3. End-stage renal disease on dialysis . 4. Diabetes mellitus type 2. 5. Hypertension. Date of Surgery: 08/06/19 Discharge Date: 08/06/19 Condition: Fair Forms: Sedation D/C Instructions, Discharge POC-Surgical Service Referrals: CHANDU BLACKBURN MD [ACTIVE STAFF] - Discharge Diet: Other (Comments) - Renal, diabetic. Respiratory Treatments at Home: Deep Breathing/Coughing Discharge Activity: Activity As Tolerated, Balance Activity w/Rest, No Driving Home Care Assistance: None Needed Report the Following to Your Physician Immediately: Shortness of Breath, Increase in Pain, Fever over 101 Degrees, Unusual Bleeding, Redness, Swelling, IV Site Infection Signs
--- NOTE | 2019-08-06 14:54 | Operative Report ---
Operative Report DATE OF SURGERY: 08/06/19 PREOPERATIVE DIAGNOSIS: #1 malfunctioning AV fistula, right radiocephalic. 2. Hyperkalemia. 3. End-stage renal disease on dialysis . 4. Diabetes mellitus type 2. 5. Hypertension. POSTOPERATIVE DIAGNOSIS: #1 malfunctioning AV fistula, right radiocephalic. 2. Hyperkalemia. 3. End-stage renal disease on dialysis . 4. Diabetes mellitus type 2. 5. Hypertension. OPERATION: 1. Needle access into the fistula. 2. Angioplasty AV fistula, right radiocephalic. 3. Drug-eluting balloon angioplasty I AV fistula, right upper extremity. 4. Angiogram and interpretation. SURGEON: CHANDU VERMA WINDOWS SERVER ARCHITECT: None. ANESTHESIA: Moderate Sedation TISSUE REMOVED OR ALTERED: Not applicable. COMPLICATIONS: None. ESTIMATED BLOOD LOSS: 2 mL. INTRAOPERATIVE FINDINGS: Of a well founded right radiocephalic fistula. Culprit area identified about 4 cm from anastomosis extending for about 3 2.5 cm representing about 90% stenosis. Adjacent vessel. Angioplasty was successful in eradicating most of the stenosis residual estimated to 10% stenosis in about 3 mm segment. The plan is to consider re-intervention in about 3 months and using a higher pressure balloon. Pressures up to 15 lakia were employed. Today. Clinically there was vast improvement in the fistula which was much more appropriately firm or cephalad to the prior area of stenosis indicating clinical improvement in flow. PROCEDURE: PROCEDURE: After verifying the procedure and having obtained informed consent, the patient's right arm and forearm were prepared with Chlorhexidine and draped out with sterile linen. Local anesthesia infiltrated. Percutaneous access into the fistula ,[retrograde], obtained about [20 cm] from the arteriovenous anastomosis using a micro puncture needle followed by micro puncture wire and then a micro puncture catheter. This was done on ultrasound guidance using real-time access into the vein. Ultrasound was also used to size the vein. A 0.035 [place] wire was inserted, and over this, a 6 [place] short introducer was placed. A Kumpe catheter was placed over the Glidewire and manipulated into the proximal fistula. The actual anastomosis was not instrumented. There was a large bulbous dilatation immediately adjacent to it. The Glidewire tentative coil in this bulb.,Angiogram demonstrated the aforementioned findings. Angioplasty was elected. this was followed by a 6 mm angioplasty balloon . Angioplasty was now done at the aforementioned culprit region. This was done using a 3 mils syringe and for up to 2 minutes at a time. This was done repeatedly with sequentially better. Some waist and angiogram.. Angiogram demonstrated adequate outcome. The balloon was now swapped over the wire for a 6 mm drug-eluting angioplasty balloon. Angioplasty was Not done using an insufflator. Inflating up to 11 atmospheres for 4 minutes.]. Completion angiogram demonstrated [satisfactory result]. The instrumentation was now withdrawn with 10 minutes of gentle hand pressure . Dressings applied, procedure concluded. Exposure time: 3 minutes Radiation: 2.99 mGy. Contrast: 25 mL of Isovue-M 300 low osmolality. DICTATING PHYSICIAN: CHANDU BLACKBURN M.D. cc: CHANDU BLACKBURN M.D. ([id number]) >>
--- NOTE | 2019-08-06 14:56 | PDOC H&P ---
General Chief Complaint: Malfunction was noted in this AV fistula prompting referral for angiogram. 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 Is this a Current Diagnosis?: Yes (4) Hepatitis C Is this a Current Diagnosis?: Yes - Current Medications/Allergies Home Medications: Calcium Acetate [Phoslo 667 mg Capsule] 667 mg PO MEALS 07/02/17 Metoprolol Tartrate [Lopressor 25 mg Tablet] 25 mg PO Q12 07/02/17 Amlodipine Besylate [Norvasc 5 mg Tablet] 5 mg PO Q12 07/18/17 Calcitriol [Rocaltrol 0.25 Mcg Capsule] 0.25 mcg PO ASDIR PRN 12/18/17 Clonidine [Catapres-Tts 3 (0.3 mg/24 Hr) Transderm Patch] 1 patch TD ASDIR 12/18/17 Allergies/Adverse Reactions: No Known Allergies Allergy (Verified 08/06/19 10:12) Past Medical History Cardiac Medical History: Reports: Congestive Heart Failure, Coronary Artery Disease - hyperlipidemia, Hypertension - MEDS Denies: Myocardial Infarction Pulmonary Medical History: Denies: Asthma, Bronchitis, Chronic Obstructive Pulmonary Disease (COPD), Pneumonia Neurological Medical History: Denies: Seizures Endocrine Medical History: Reports: Diabetes Mellitus Type 2 - diet controlled Renal/ Medical History: Reports: End Stage Renal Disease Musculoskeltal Medical History: Reports: Arthritis - left knee Psychiatric Medical History: Denies: Depression Hematology: Denies: Anemia Past Surgical History Past Surgical History: Reports: Vascular Surgery - Laparoscopic peritoneal jose lysis catheter insertion. Right forearm shunt Family History Family History: Reviewed & Not Pertinent, CAD, DM Parental Family History Reviewed: No Children Family History Reviewed: No Sibling(s) Family History Reviewed.: No Social History Smoking Status: Unknown if Ever Smoked Frequency of Alcohol Use: None Hx Recreational Drug Use: No Drugs: None Hx Prescription Drug Abuse: No Physical Exam Vital Signs: Temp Pulse Resp BP Pulse Ox 97.3 F 52 L 16 127/64 H 98 08/06/19 12:25 08/06/19 14:37 08/06/19 14:37 08/06/19 14:00 08/06/19 14:37 Intake & Output 08/05/19 08/06/19 08/07/19 06:59 06:59 06:59 Intake Total 50 Balance 50 Weight 88.5 kg 88.5 kg Additional comments: Constitutional: Well-developed well-nourished -[place] gentleman. No apparent acute distress. Eyes: Mucous membranes pink and moist, pupils equal and reactive to light. Conjunctiva normal. Cornea normal. ENT: Hearing grossly normal. External pinna normal to inspection. Teeth mostly intact. Tongue normal to inspection. Cardiac: Heart sounds 1 and 2 normal, . Respiratory: . Normal respiratory effort. .. Psychiatric: Judgment, memory, insight seem normal. Mood is pleasant and appropriate. Extremities: Upper extremities show normal range of movement. Pulses present noted to the radial arteries. Capillary refill normal. No cyanosis noted. No muscle wasting noted. Right-sided radiocephalic AV fistula noted. Hyper pulsatile in the first 4 cm with drop-off in pressure thereafter suggesting stenosis at this region. Neurovascular: No apparent tremors, gait normal. Sensation grossly intact. Hearing grossly normal. Vison grossly intact. Impression/Plan Plan: This patient with a malfunctioning AV fistula, angiogram is recommended possible angioplasty. The procedure, its risks, benefits, expected outcomes alternatives are familiar to the patient and he wishes to proceed.
== END 2019-08-06 14:07 | disposition home or self-care (01) ==
LOC: CCL 09:46
PROVIDERS: ATTEND Surgery
DX: T82.858A Stenosis of other vascular prosthetic devices, implants and grafts, initial encounter (principal); Y83.2 Surgical operation with anastomosis, bypass or graft as the cause of abnormal reaction of the patient, or of later complication, without mention of misadventure at the time of the procedure; E11.22 Type 2 diabetes mellitus with diabetic chronic kidney disease; I13.2 Hypertensive heart and chronic kidney disease with heart failure and with stage 5 chronic kidney disease, or end stage renal disease; I50.9 Heart failure, unspecified; N18.6 End stage renal disease; Z99.2 Dependence on renal dialysis; Z79.899 Other long term (current) drug therapy; M17.12 Unilateral primary osteoarthritis, left knee
CPT/HCPCS: 36415; 85027; 80048; 36902; C2623; C1752; C1887; C1725; C1769; J2250; J1644 ×2; A9270 ×3; J3010; J3490; J0610

== ENCOUNTER 2020-04-16 14:45 | Emergency (ER) | payer MEDICARE, OTHER ==
--- NOTE | 2020-04-16 15:10 | ER Document Report ---
ED Medical Screen (RME) - General Chief Complaint: Abnormal Lab Results Stated Complaint: ABNORMAL LABS Time Seen by Provider: 04/16/20 15:07 Mode of Arrival: Ambulatory Information source: Patient Notes: 64-year-old male presented to ED for abnormal lab draws. He states he needs blood. He states he was told his blood level was 5. He states he has not seen any bleeding. He is alert oriented respirations regular nonlabored speaking in full sentences. I will order labs urine and stool and type and screen. He will be seen by another provider. States he does smoke maybe 1 cigarette a week denies any use of drugs or alcohol. I have greeted and performed a rapid initial assessment of this patient. A comprehensive ED assessment and evaluation of the patient, analysis of test re sults and completion of medical decision making process will be conducted by an additional ED providers. TRAVEL OUTSIDE OF THE [place] IN LAST 30 DAYS: No - Related Data Allergies/Adverse Reactions: No Known Allergies Allergy (Verified 01/02/20 18:31) Past Medical History - Past Medical History Cardiac Medical History: Reports: Hx Congestive Heart Failure, Hx Coronary Artery Disease - hyperlipidemia, Hx Hypertension - MEDS Denies: Hx Heart Attack Pulmonary Medical History: Denies: Hx Asthma, Hx Bronchitis, Hx COPD, Hx Pneumonia Neurological Medical History: Denies: Hx Cerebrovascular Accident, Hx Seizures Endocrine Medical History: Reports: Hx Diabetes Mellitus Type 2 - diet controlled Renal/ Medical History: Reports: Hx End Stage Renal Disease, Hx Hemodialysis. Denies: Hx Peritoneal Dialysis Musculoskeltal Medical History: Reports Hx Arthritis - left knee Psychiatric Medical History: Denies: Hx Depression Past Surgical History: Reports: Hx Vascular Surgery - Laparoscopic peritoneal dialysis catheter insertion. Right forearm shunt, Other - Prostate biopsy - Immunizations Hx Diphtheria, Pertussis, Tetanus Vaccination: Yes - unknown Physical Exam - Vital signs Vitals: Temp Pulse Resp BP Pulse Ox 98.4 F 74 16 133/63 H 98 04/16/20 15:02 04/16/20 15:02 04/16/20 15:02 04/16/20 15:02 04/16/20 15:02 Course - Vital Signs Vital signs: Temp Pulse Resp BP Pulse Ox 98.4 F 74 16 133/63 H 98 04/16/20 15:02 04/16/20 15:02 04/16/20 15:02 04/16/20 15:02 04/16/20 15:02
[2020-04-16 15:45] LABS: ABSOLUTE BASOPHILS # (AUTO) 0.1 10^3/uL (0.0-0.2); ABSOLUTE EOSINOPHILS # (AUTO) 0.2 10^3/uL (0.0-0.6); ABSOLUTE LYMPHOCYTES (AUTO) 1.2 10^3/uL (0.5-4.7); ABSOLUTE MONOCYTES (AUTO) 0.7 10^3/uL (0.1-1.4); ABSOLUTE NEUT (AUTO) 4.3 10^3/uL (1.7-8.2); BASOPHILS % (AUTO) 1.1 % (0-2); EOSINOPHILS % (AUTO) 3.6 % (0-6); HEMATOCRIT 17.2 % (37.9-51.0); LYMPHOCYTES % (AUTO) 18.8 % (13-45); MEAN CORPUSCULAR HEMOGLOBIN 25.9 pg (27.0-33.4); MEAN CORPUSCULAR VOLUME 81 fl (80-97); MONOCYTES % (AUTO) 11.2 % (3-13); PLATELET COUNT 363 10^3/uL (150-450); RED BLOOD COUNT 2.13 10^6/uL (4.35-5.55); SEGMENTED NEUTROPHILS % (AUTO) 65.3 % (42-78); TOTAL CELLS COUNTED % (AUTO) 100 %; WHITE BLOOD COUNT 6.5 10^3/uL (4.0-10.5)
[2020-04-16 15:55] LABS: ALKALINE PHOSPHATASE 91 U/L (38-126); ANION GAP 12 (5-19); ASPARTATE AMINO TRANSFERASE 14 U/L (17-59); BILIRUBIN,DIRECT 0.3 mg/dL (0.0-0.4); BILIRUBIN,TOTAL 0.3 mg/dL (0.2-1.3); BLOOD UREA NITROGEN 48 mg/dL (7-20); CALCIUM 8.5 mg/dL (8.4-10.2); CARBON DIOXIDE 28 mmol/L (22-30); CHLORIDE 102 mmol/L (98-107); GLUCOSE 92 mg/dL (75-110); POTASSIUM 4.4 mmol/L (3.6-5.0); TOTAL PROTEIN 6.9 g/dL (6.3-8.2)
[2020-04-16 16:17] LABS: HEMOGLOBIN 5.5 g/dL (13.5-17.0)
[2020-04-16] MEDS ORDERED: NORMAL SALINE 250 ML IV PRN ×2 (17:30)
[2020-04-16] MEDS ORDERED: DIPHENHYDRAMINE HCL 50 MG/ML VIAL IV ONE (18:02)
[2020-04-16] MEDS ORDERED: ACETAMINOPHEN 325 MG TABLET PO ONE (18:02)
--- NOTE | 2020-04-16 18:33 | ER Document Report ---
Entered by GALE TELLEZ SCRIBE 04/16/20 1349 Acting as scribe for:NGA LUNDY MD ED General - General Chief Complaint: Abnormal Lab Results Stated Complaint: ABNORMAL LABS Time Seen by Provider: 04/16/20 15:07 Mode of Arrival: Ambulatory Information source: Patient Notes: This 64 year old male patient with a history of anemia and ESRD on HD (MWF, last dialyzed yesterday) presents to the ED today for evaluation after he was advised to come to the ED by his business specialist Dr. Flower due to abnormal lab draws. Patient was told that he had a hemoglobin of 5 and required a blood transfusion. Patient does reports some dizziness, but denies any other complaints. Last transfusion was on 01/02/2020. Patient notes that he does not make urine. TRAVEL OUTSIDE OF THE [place] IN LAST 30 DAYS: No - Related Data Allergies/Adverse Reactions: No Known Allergies Allergy (Verified 01/02/20 18:31) Past Medical History - General Information source: Patient - Social History Smoking Status: Unknown if Ever Smoked Smoking Education Provided: No Family History: Reviewed & Not Pertinent, CAD, DM - Past Medical History Cardiac Medical History: Reports: Hx Congestive Heart Failure, Hx Coronary Artery Disease - hyperlipidemia, Hx Hypertension - MEDS Endocrine Medical History: Reports: Hx Diabetes Mellitus Type 2 - diet controlled Renal/ Medical History: Reports: Hx End Stage Renal Disease, Hx Hemodialysis Musculoskeletal Medical History: Reports Hx Arthritis - left knee Past Surgical History: Reports: Hx Vascular Surgery - Laparoscopic peritoneal dialysis catheter insertion. Right forearm shunt, Other - Prostate biopsy - Immunizations Hx Diphtheria, Pertussis, Tetanus Vaccination: Yes - unknown Hx Pneumococcal Vaccination: 06/05/16 Review of Systems - Review of Systems Constitutional: See HPI, Other - Abnormal lab draw EENT: No symptoms reported Cardiovascular: See HPI, Dizziness Respiratory: No symptoms reported Gastrointestinal: No symptoms reported Genitourinary: No symptoms reported Male Genitourinary: No symptoms reported Musculoskeletal: No symptoms reported Skin: No symptoms reported Hematologic/Lymphatic: No symptoms reported Neurological/Psychological: No symptoms reported -: Yes All other systems reviewed and negative Physical Exam - Vital signs Vitals: Temp Pulse Resp BP Pulse Ox 98.4 F 74 16 133/63 H 98 04/16/20 15:02 04/16/20 15:02 04/16/20 15:02 04/16/20 15:02 04/16/20 15:02 - General General appearance: Alert In distress: None - HEENT Head: Normocephalic, Atraumatic Eyes: Other - Pale palpebral sclera Pupils: PERRL - Respiratory Respiratory status: No respiratory distress Chest status: Nontender Breath sounds: Normal Chest palpation: Normal - Cardiovascular Rhythm: Regular Heart sounds: Normal auscultation Murmur: No Friction rub: No Gallop: None auscultated - Abdominal Inspection: Normal Distension: No distension Bowel sounds: Normal Tenderness: Nontender - Abdomen soft Organomegaly: No organomegaly - Back Back: Normal, Nontender - Extremities General lower extremity: Normal inspection. No: Edema Forearm: Other - Dialysis shunt present in right dorsal forearm, appears recently accessed Hand: Other - Fingernails are minimally pale - Neurological Neuro grossly intact: Yes Orientation: AAOx4 - Psychological Associated symptoms: Normal affect, Normal mood - Skin Skin Temperature: Warm Skin Moisture: Dry Skin Color: Normal Course - Re-evaluation Re-evalutation: 04/16/20 18:43 The patient is a very poor historian. He does not know who his primary care doctor is. He is previously been admitted in [address] Fisher for anemia requiring transfusion. I spoke with Dr. Fisher, he states if the patient cannot tell me who his doctor is then it is not his patient and he will not see him. Looking through pharmacy prescription records, all of his medications have recently come from Dr. Flower, his PA, a urology PA, and Dr. Benitez. - Vital Signs Vital signs: Temp Pulse Resp BP Pulse Ox 98.8 F 88 16 118/63 98 04/16/20 20:10 04/16/20 20:10 04/16/20 20:10 04/16/20 20:10 04/16/20 20:10 - Laboratory Result Diagrams: 04/16/20 15:15 04/16/20 15:15 Laboratory results interpreted by me: 04/16/20 04/16/20 04/16/20 15:15 15:15 15:15 RBC 2.13 L Hgb 5.5 L Hct 17.2 L MCH 25.9 L RDW 22.0 H BUN 48 H Creatinine 10.81 H Est GFR ( Amer) 6 L Est GFR (MDRD) Non-Af 5 L AST 14 L Crossmatch See Detail - Transfer of Care Care transferred to following provider: Dr. Bran Notes: 04/16/20 21:04 Will be just receiving 3 units of packed RBCs. Each unit will be transfused over 4 hours. He will require Benadryl 25mg IVand Tylenol 650mg P.O. before each unit. When he is discharged tomorrow morning, he should be going to dialysis. Scheduled to dialyze at 6:30 in the morning. Discharge - Discharge Clinical Impression: Chronic disease anemia, Hypertension associated with chronic kidney disease due to type 2 diabetes mellitus Condition: Stable Disposition: HOME, SELF-CARE Additional Instructions: Go to dialysis when you are discharged. Follow-up with your kidney doctor as needed. RETURN TO THE EMERGENCY ROOM IF ANY NEW OR WORSENING SYMPTOMS. I personally performed the services described in the documentation, reviewed and edited the documentation which was dictated to the scribe in my presence, and it accurately records my words and actions.
[2020-04-17 06:10] VITALS: BP 154/72
== END 2020-04-17 06:25 | disposition home or self-care (01) ==
LOC: ER 14:45
DX: E11.22 Type 2 diabetes mellitus with diabetic chronic kidney disease (principal); D63.1 Anemia in chronic kidney disease; I12.0 Hypertensive chronic kidney disease with stage 5 chronic kidney disease or end stage renal disease; N18.6 End stage renal disease; R42 Dizziness and giddiness; Z99.2 Dependence on renal dialysis
CPT/HCPCS: 99284; 96361; 96375; 96365; 96366 ×2; 86900; 86901; 36415; 36430; 86850; 83690; 85025; 80053; 86920; P9016; A9270; J1200; J7050

== ENCOUNTER 2020-05-15 11:18 | Outpatient (CLI) | payer MEDICARE, OTHER ==
[2020-05-16] MEDS ORDERED: ACETAMINOPHEN 325 MG TABLET PO PRN (08:20)
[2020-05-16] MEDS ORDERED: DIPHENHYDRAMINE HCL 25 MG CAPSULE PO PRN (08:23)
[2020-05-16] MEDS ORDERED: FUROSEMIDE INJ/PF 40 MG/4 ML SDV IV PRN (08:24)
[2020-05-16 16:34] VITALS: BP 140/55
== END 2020-05-16 16:30 | disposition home or self-care (01) ==
LOC: II 11:18 → OD 11:18 → II 05-16 07:52 → 4S 05-16 07:52 → OD 05-16 16:30 → II 05-16 16:31 → EDSTATUS 05-25 15:24
PROVIDERS: ATTEND Internal Medicine Nephrology
DX: D50.0 Iron deficiency anemia secondary to blood loss (chronic) (principal); N18.6 End stage renal disease; D63.1 Anemia in chronic kidney disease
CPT/HCPCS: 86900; 86901; 36415; 36430; 86850; 86920; 96374; P9016; J1940